=== PATIENT | female | born 1980 | race African-American/Black ===

== ENCOUNTER 2020-09-10 13:05 | Emergency (ER) | payer SELFPAY ==
--- OUTSIDE RECORDS SUMMARY | 2020-09-10 13:07 | XMS REPORT | Clinical Summary ---
:1980 Author Organization [facility] Address [address] [place] [address] Care Team Providers Name Role Phone Asked, Pcp Primary Care Provider Unavailable Allergies Active Allergy Reactions Severity Noted Date Comments Erythromycin 10/15/2017 Ferrous Sulfate 10/15/2017 Medications Medication Sig Dispensed Refills Start Date End Date Status ondansetron (ZOFRAN) 4 Take 1 tablet (4 8 tablet 0 10/15/2017 Active MG tablet mg total) by mouth every 8 (eight) hours as needed for nausea or vomiting for up to 8 doses. 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
--- OUTSIDE RECORDS SUMMARY | 2020-09-10 13:08 | XMS REPORT | Continuity of Care Document ---
:1980 Author Organization [facility] t Address [address] [place] [address] Care Team Providers Name Role Phone Asked, Pcp Primary Care Physician Unavailable Nayeli MSN, A Attending Clinician Doctor Unassigned, Name Attending Clinician Unavailable Problems This patient has no known problems. Allergies, Adverse Reactions, Alerts Allergy Allergy Status Severity Reaction(s) Onset Inactive Treating Comm ents Source Name Type Date Date Clinician Erythrom Propensi Active [place] [facility] ty to 10-15 [facility] adverse 00:00: st reaction 00 s to drug Ferrous Propensi Active [place] Sulfate ty to 08 Methodi adverse 00:00: st reaction 00 s to drug Social History Social Habit Start Date Stop Date Quantity Comments Source History of tobacco Cigarette Smoker [place] use [facility] Sex Assigned At [place] [facility] Cigarettes smoked 2018-04-16 2018-04-16 [place] current (pack per 00:00:00 00:00:00 Methodi day) - Reported Tobacco use and 2018-04-16 2018-04-16 Current user [place] exposure 00:00:00 00:00:00 [facility] Alcohol intake 2018-04-16 2018-04-16 Current [place] 00:00:00 00:00:00 non-drinker of [facility] alcohol (finding) Smoking Status Start Date Stop Date Source Current every day smoker 2018-04-16 00:00:00 Delfino rodriguez [facility] Medications Ordered Filled Start Stop Current Ordering Indication Dosage Frequency Signature Comments Components Source Medication Medication Date Date Medication? Clinician (SIG) Name Name ondansetron 2018-0 Yes 4mg Q8H Take 1 [place] (ZOFRAN) 4 1-08 tablet (4 Meth dick MG tablet 00:00: mg total) st 00 by mouth every 8 (eight) hours as needed for nausea or vomiting for up to 8 doses. Procedures This patient has no known procedures. Plan of Care Planned Activity Planned Date Details Comments Source Future Scheduled 2020-05-08 INFLUENZA VACCINE [place] [facility] Test 00:00:00 [code = INFLUENZA VACCINE] Future Scheduled 2003 Screening for [facility] Test 00:00:00 malignant neoplasm of cervix (procedure) [code = 062813057] Encounters Start End Encounter Admission Attending Care Care Encounter Source Date/Time Date/Time Type Type Clinicians Facility Department ID 2020-05-10 2020-05-10 Office IZABELA Tyler [id number] 10:21:50 12:13:46 Visit Theresa Larkin [facility] [id number] [facility] [id number] MATERNAL [id number] & CHILD [address] [place] [address] 2020-05-10 2020-05-10 Orders Doctor KRISTIN [id number] 00:00:00 00:00:00 Only Unassigned, KELI [id number] [facility] [id number] 2019-11-28 2019-11-28 Emergency E [facility] [id number] [facility]BL 19:15:00 19:15:00 2019-11-23 2019-11-23 Emergency E [facility] [id number] MHBL 09:55:00 09:55:00 2019-05-31 2019-05-31 Emergency E [facility] [id number] MHBL 09:27:00 09:27:00 2019-05-07 2019-05-07 Emergency E [facility] [id number] MHBL 08:04:00 08:04:00 Results This patient has no known results.
[2020-09-10] MEDS ORDERED: ONDANSETRON 4 MG/2 ML VIAL ONE (13:52)
[2020-09-10] MEDS ORDERED: DICYCLOMINE HCL 10 MG CAP ONE (13:52)
[2020-09-10] MEDS ORDERED: NA CHLORIDE 0.9% 1,000 ML ONE (13:53)
[2020-09-10 14:05] LABS: Absolute Lymphocytes (CBC) 2.6 K/uL (0.7-4.9); Basophils % 0.7 % (0-1.3); Hematocrit 40.3 % (36.0-45.0); Lymphocytes % 22.6 % (15.3-44.8); MPV 7.7 fL (7.6-11.3); RBC Red Blood Cell Count 5.06 M/uL (3.86-4.86)
[2020-09-10 14:06] LABS: ALT/SGPT 24 U/L (12-78); AST/SGOT 15 U/L (15-37); Albumin 4.3 g/dL (3.4-5.0); Alkaline Phosphatase 67 U/L (45-117); BUN Blood Urea Nitrogen 10 mg/dL (7-18); Bicarbonate 27 mmol/L (21-32); Bilirubin Direct < 0.1 mg/dL (0-0.2); Bilirubin Total 0.5 mg/dL (0.2-1.0); Glucose Level 121 mg/dL (74-106); Lipase 88 U/L (73-393); Potassium 3.6 mmol/L (3.5-5.1); Protein, Total 8.3 g/dL (6.4-8.2); Sodium Level 138 mmol/L (136-145)
[2020-09-10] MEDS ORDERED: PROMETHAZINE INJ 25 MG/ML AMP ONE (15:31)
--- NOTE | 2020-09-10 15:51 | EDPHYS ---
Physician Documentation [facility] Name: Norma Bowman Age: 39 yrs Sex: Female : 1980 Arrival Date: 09/10/2020 Time: 13:07 Bed 13 Private MD: LAYLA Physician Ap Coello HPI: 09/10 13:57 This 39 yrs old Black Female presents to ER via Ambulatory with complaints of Abdominal kb Pain, Vomiting. 13:57 The patient has not experienced similar symptoms in the past. The patient has not kb recently seen a physician. 14:03 The patient presents to the emergency department with nausea, vomiting. Onset: The kb symptoms/episode began/occurred yesterday. Possible causes: unknown. The symptoms are aggravated by nothing. The symptoms are alleviated by nothing. Associated signs and symptoms: Pertinent positives: fever, nausea, vomiting, Pertinent negatives: abdominal pain. Severity of symptoms: At their worst the symptoms were moderate in the emergency department the symptoms are unchanged. Pt reports nausea and vomiting since yesterday with fever and chills. Today she started having abd cramps and couldn't keep anything down so she came in. Denies abd pain or tenderness.. 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 - Social history:: Smoking status: Patient reports the use of cigarette tobacco products, smokes one pack cigarettes per day. ROS: 13:57 Cardiovascular: Negative for chest pain, palpitations, and edema, Respiratory: Negative kb for shortness of breath, cough, wheezing, and pleuritic chest pain, Back: Negative for injury and pain, MS/Extremity: Negative for injury and deformity, Skin: Negative for injury, rash, and discoloration, Neuro: Negative for headache, weakness, numbness, tingling, and seizure. 13:57 Constitutional: Positive for chills, fever, malaise. 13:57 Abdomen/GI: Positive for nausea and vomiting, abdominal cramps, Negative for abdominal pain, diarrhea, constipation. Exam: 13:56 Constitutional: This is a well developed, well nourished patient who is awake, alert, kb and in no acute distress. Head/Face: Normocephalic, atraumatic. Chest/axilla: Normal chest wall appearance and motion. Nontender with no deformity. No lesions are appreciated. Cardiovascular: Regular rate and rhythm with a normal S1 and S2. No gallops, murmurs, or rubs. Normal PMI, no JVD. No pulse deficits. Respiratory: Lungs have equal breath sounds bilaterally, clear to auscultation and percussion. No rales, rhonchi or wheezes noted. No increased work of breathing, no retractions or nasal flaring. Abdomen/GI: Soft, non-tender, with normal bowel sounds. No distension or tympany. No guarding or rebound. No evidence of tenderness throughout. Skin: Warm, dry with normal turgor. Normal color with no rashes, no lesions, and no evidence of cellulitis. MS/ Extremity: Pulses equal, no cyanosis. Neurovascular intact. Full, normal range of motion. Neuro: Awake and alert, GCS 15, oriented to person, place, time, and situation. Cranial nerves II-XII grossly intact. Motor strength 5/5 in all extremities. Sensory grossly intact. Cerebellar exam normal. Normal gait. Vital Signs: 13:15 BP 130 / 89; Pulse 61; Resp 18; Temp 98.2(TE); Pulse Ox 99% on R/A; Weight 87.09 kg; ss Height 5 ft. 8 in. (172.72 cm); Pain 7/10; 16:14 BP 155 / 91; Pulse 60; Resp 17; Pulse Ox 99% ; ll1 13:15 Body Mass Index 29.19 (87.09 kg, 172.72 cm) ss MDM: 13:21 Patient medically screened. kb 13:56 Data reviewed: vital signs, nurses notes. Data interpreted: Pulse oximetry: on room air kb is 99 %. Interpretation: normal. 15:50 Counseling: I had a detailed discussion with the patient and/or guardian regarding: the kb historical points, exam findings, and any diagnostic results supporting the discharge/admit diagnosis, lab results, the need for outpatient follow up, a family practitioner, to return to the emergency department if symptoms worsen or persist or if there are any questions or concerns that arise at home. 12/04 13:32 Order name: Basic Metabolic Panel; Complete Time: 14:07 kb 09/10 13:32 Order name: CBC with Diff; Complete Time: 14:24 kb 09/10 13:32 Order name: Hepatic Function; Complete Time: 14:07 kb 09/10 13:32 Order name: Lipase; Complete Time: 14:07 kb 09/10 13:36 Order name: Flu; Complete Time: 14:24 kb 09/10 14:46 Order name: COVID-19 kb 09/10 13:32 Order name: IV Saline Lock; Complete Time: 13:34 kb 09/10 13:32 Order name: Labs collected and sent; Complete Time: 13:34 kb 09/10 14:46 Order name: PO challenge; Complete Time: 15:26 kb Administered Medications: 13:43 Drug: NS 0.9% 1000 ml Route: IV; Rate: 1000 ml; Site: left antecubital; ll1 15:37 Follow up: Response: No adverse reaction; Vomiting decreased; RASS: Alert and Calm (0); ll1 IV Status: Completed infusion; IV Intake: 1000ml 13:43 Drug: Zofran (Ondansetron) 4 mg Route: IVP; Site: left antecubital; ll1 14:09 Follow up: Response: No adverse reaction; Nausea is decreased; RASS: Alert and Calm (0) ll1 14:09 Drug: Bentyl 20 mg Route: PO; ll1 15:37 Follow up: Response: No adverse reaction; Pain is decreased; RASS: Alert and Calm (0) ll1 15:26 Drug: Phenergan 12.5 mg Route: IVP; Site: left antecubital; ll1 16:14 Follow up: Response: No adverse reaction; RASS: Alert and Calm (0) ll1 Disposition: 09/11 08:29 Co-signature as Attending Physician, Ap Coello MD I agree with the assessment and rosey plan of care. Disposition: 09/10/20 15:50 Discharged to Home. Impression: Nausea and vomiting. - Condition is Stable. - Discharge Instructions: Nausea and Vomiting, Adult, [id number]. - Prescriptions for Bentyl 20 mg Oral Tablet - take 1 tablet by ORAL route every 6 hours As needed; 20 tablet. Zofran 4 mg Oral Tablet - take 1 tablet by ORAL route every 6 hours As needed; 20 tablet. - Medication Reconciliation Form, Thank You Letter, Antibiotic Education, Prescription Opioid Use, Work release form form. - Follow up: Private Physician; When: 2 - 3 days; Reason: Recheck today's complaints, Continuance of care, Re-evaluation by your physician. Follow up: Emergency Department; When: As needed; Reason: Worsening of condition. Signatures: Dispatcher [employer] EDAL Elmira Jamison, SPEEDER WORKER-C SPEEDER WORKER-Ap Fletcher MD MD cha Smirch, Shelby, RN RN ss Mely Lujan RN RN ll1 Corrections: (The following items were deleted from the chart) 09/10 14:03 13:57 Abdomen/GI: Positive for nausea and vomiting, Negative for abdominal pain, kb diarrhea, constipation, kb 16:17 15:50 09/10/2020 15:50 Discharged to Home. Impression: Nausea and vomiting. Condition ll1 is Stable. Forms are Medication Reconciliation Form, Thank You Letter, Antibiotic Education, Prescription Opioid Use. Follow up: Private Physician; When: 2 - 3 days; Reason: Recheck today's complaints, Continuance of care, Re-evaluation by your physician. Follow up: Emergency Department; When: As needed; Reason: Worsening of condition. kb
--- NOTE | 2020-09-10 15:51 | ER ---
Nurse's Notes [facility] Name: Norma Bowman Age: 39 yrs Sex: Female : 1980 Arrival Date: 09/10/2020 Time: 13:07 Bed 13 Private MD: Diagnosis: Nausea and vomiting Presentation: 09/10 13:15 Chief complaint: Patient states: abd pain, N/V that began after eating yesterday. Pt ss also c/o fatigue. Coronavirus screen: Client denies travel out of the [place] in the last 14 days. Ebola Screen: Patient denies exposure to infectious person. Patient denies travel to an Ebola-affected area in the 21 days before illness onset. Initial Sepsis Screen: Does the patient meet any 2 criteria? No. Patient's initial sepsis screen is negative. Does the patient have a suspected source of infection? No. Patient's initial sepsis screen is negative. Risk Assessment: Do you want to hurt yourself or someone else? Patient reports no desire to harm self or others. Onset of symptoms was September 09, 2020. 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 - Social history:: Smoking status: Patient reports the use of cigarette tobacco products, smokes one pack cigarettes per day. Screenin:44 Abuse screen: Denies threats or abuse. Nutritional screening: No deficits noted. ll1 Tuberculosis screening: No symptoms or risk factors identified. Fall Risk None identified. IV access (20 points). Gait- Weak (10 pts.). Total Cassidy Fall Scale indicates Low Risk Score (25-44 pts). Fall prevention measures have been instituted. Side Rails Up X 2 Frequent Obs/Assesments occuring As available Patient and Family Educated on Fall Prevention Program and strategies. Assessment: 13:43 General: Appears uncomfortable, Behavior is calm, cooperative, appropriate for age. ll1 Pain: Complains of pain in abd cramping Pain currently is 3 out of 10 on a pain scale. Quality of pain is described as aching, crampy, Is intermittent. Neuro: No deficits noted. Cardiovascular: No deficits noted. Respiratory: No deficits noted. GI: Abdomen is flat, Bowel sounds present X 4 quads. Abd is soft X 4 quads Abdomen is tender to palpation X 4 quads. Reports cramping, nausea, vomiting. Musculoskeletal: Circulation, motion, and sensation intact. Capillary refill < 3 seconds, Reports body aches and fatigue. 14:40 Reassessment: Patient and/or family updated on plan of care and expected duration. Pain ll1 level reassessed. Patient states symptoms have not improved. 15:40 Reassessment: Patient and/or family updated on plan of care and expected duration. Pain ll1 level reassessed. Patient is alert, oriented x 3, equal unlabored respirations, skin warm/dry/pink. nausea is better, but is emotionally crying. States she is just tired and just wants to be able to sleep. . Vital Signs: 13:15 BP 130 / 89; Pulse 61; Resp 18; Temp 98.2(TE); Pulse Ox 99% on R/A; Weight 87.09 kg; ss Height 5 ft. 8 in. (172.72 cm); Pain 7/10; 16:14 BP 155 / 91; Pulse 60; Resp 17; Pulse Ox 99% ; ll1 13:15 Body Mass Index 29.19 (87.09 kg, 172.72 cm) ss ED Course: 13:07 Patient arrived in ED. ds1 13:16 Triage completed. ss 13:16 Arm band placed on right wrist. ss 13:21 Elmira Jamison FNP-C is PHCP. kb 13:21 Ap Coello MD is Attending Physician. kb 13:22 Mely Lujan RN is Primary Nurse. ll1 13:39 Inserted saline lock: 20 gauge in left antecubital area, using aseptic technique. Blood dh4 collected. 13:45 Patient has correct armband on for positive identification. Bed in low position. Call ll1 light in reach. Side rails up X 1. NIBP on. Sitter at bedside. 16:16 No provider procedures requiring assistance completed. IV discontinued, intact, ll1 bleeding controlled, No redness/swelling at site. Pressure dressing applied. Administered Medications: 13:43 Drug: NS 0.9% 1000 ml Route: IV; Rate: 1000 ml; Site: left antecubital; ll1 15:37 Follow up: Response: No adverse reaction; Vomiting decreased; RASS: Alert and Calm (0); ll1 IV Status: Completed infusion; IV Intake: 1000ml 13:43 Drug: Zofran (Ondansetron) 4 mg Route: IVP; Site: left antecubital; ll1 14:09 Follow up: Response: No adverse reaction; Nausea is decreased; RASS: Alert and Calm (0) ll1 14:09 Drug: Bentyl 20 mg Route: PO; ll1 15:37 Follow up: Response: No adverse reaction; Pain is decreased; RASS: Alert and Calm (0) 1 15:26 Drug: Phenergan 12.5 mg Route: IVP; Site: left antecubital; ll1 16:14 Follow up: Response: No adverse reaction; RASS: Alert and Calm (0) 1 Intake: 15:37 IV: 1000ml; Total: 1000ml. 1 Outcome: 15:50 Discharge ordered by . perez 16:17 Discharged to home ambulatory. ll1 16:17 Condition: stable 16:17 Discharge instructions given to patient, Instructed on discharge instructions, follow up and referral plans. medication usage, Demonstrated understanding of instructions, follow-up care, medications, Prescriptions given X 2. 16:17 Patient left the ED. ll1 Addendum: 09/13/2020 11:42 Addendum: COVID-19 Result: Negative result given to RN to notify pt. Notified pt of i w negative COVID 19 swab results. Pt advised that even with a negative test result they should remain in isolation until symptom free for 3 days without medication. Pt also advised to return to the ED for worsening symptoms. Signatures: Elmira Jamison, AMOR-C WIRE CHARGER-Miguelina Wallace ds1 Teresita Alfredo RN RN Lauren Young RN RN Adarsh Schroeder 4 Mely Lujan RN RN 1
[2020-09-15 18:17] VITALS: BP 155/91; TEMP 98.2; O2SAT 99
== END 2020-09-10 16:17 | disposition home or self-care (01) ==
LOC: ER 13:05
DX: R11.2 Nausea with vomiting, unspecified (principal); Z20.828 Contact with and (suspected) exposure to other viral communicable diseases; F17.210 Nicotine dependence, cigarettes, uncomplicated; Z88.3 Allergy status to other anti-infective agents; Z88.8 Allergy status to other drugs, medicaments and biological substances
CPT/HCPCS: 36415; 80048; 80076; 83690; 85025; 87804; 96361; 96374; 96375; 99284; J2405; J2550; J7030; U0002

== ENCOUNTER 2021-01-11 21:37 | Emergency (ER) | payer SELFPAY ==
--- OUTSIDE RECORDS SUMMARY | 2021-01-11 21:40 | XMS REPORT | Continuity of Care Document ---
:1980 Author Organization [facility] t Address [address] [place] [address] Care Team Providers Name Role Phone Asked, Pcp Primary Care Physician Unavailable Nayeli CRUZ, A Attending Clinician Doctor Unassigned, Name Attending Clinician Unavailable Problems This patient has no known problems. Allergies, Adverse Reactions, Alerts Allergy Allergy Status Severity Reaction(s) Onset Inactive Treating Comm ents Source Name Type Date Date Clinician Erythrom Propensi Active [place] y[place] ty to 10-15 [facility] adverse 00:00: st reaction 00 s to drug Ferrous Propensi Active [place] Sulfate ty to 10-15 Methodi adverse 00:00: st reaction 00 s to drug Social History Social Habit Start Date Stop Date Quantity Comments Source History of tobacco Cigarette Smoker [place] use [facility] Cigarettes smoked 2018-04-16 2018-04-16 [place] current (pack per 00:00:00 00:00:[address] day) - Reported Tobacco use and 2018-04-16 2018-04-16 Current user [place] exposure 00:00:00 00:00:00 [facility] Alcohol intake 2018-04-16 2018-04-16 Current [place] 00:00:00 00:00:00 non-drinker of [facility] alcohol (finding) Sex Ass[birth year] At [birth year] [place] 00:00:00 00:00:00 [facility] Smoking Status Start Date Stop Date Source Current every day smoker 2018-04-16 00:00:00 Delfino Joseph Medications Ordered Filled Start Stop Current Ordering Indication Dosage Frequency Signature Comments Components Source Medication Medication Date Date Medication? Clinician (SIG) Name Name ondansetron Yes 4mg Q8H Take 1 [place] (ZOFRAN) 4 1-08 tablet (4 Meth dick MG tablet 00:00: mg total) st 00 by mouth every 8 (eight) hours as needed for nausea or vomiting for up to 8 doses. Procedures This patient has no known procedures. Plan of Care Planned Activity Planned Date Details Comments Source Future Scheduled 2020-05-08 INFLUENZA VACCINE [place] [facility] Test 00:00:00 [code = INFLUENZA VACCINE] Future Scheduled 2003 Screening for [facility]odist Test 00:00:00 malignant neoplasm of cervix (procedure) [code = 208412953] Future Scheduled 2000 Hepatitis C [place] Met [facility]ist Test 00:00:00 screening (procedure) [code = 291300866] Future Scheduled 1998 COVID-19 VACCINE (1) Delfino rodriguez [facility] Test 00:00:00 [code = COVID-19 VACCINE (1)] Encounters Start End Encounter Admission Attending Care Care Encounter Source Date/Time Date/Time Type Type Clinicians Facility Department ID 2020-05-10 2020-05-10 Office IZABELA Tyler [id number] 10:21:50 12:13:46 Visit Theresa Larkin [facility] [id number] [facility] [id number] MATERNAL [id number] & CHILD [address] [place] [address] 2020-05-10 2020-05-10 Orders Doctor KRISTIN [id number] 00:00:00 00:00:00 Only Unassigned, KELI [id number] [place] [facility] [id number] 2019-11-28 2019-11-28 Emergency E [facility] [id number] MHBL 19:15:00 19:15:00 2019-11-23 2019-11-23 Emergency E [facility]BL [id number] MHBL 09:55:00 09:55:00 2019-05-31 2019-05-31 Emergency E [facility]BL [id number] MHBL 09:27:00 09:27:00 2019-05-07 2019-05-07 Emergency E [facility] MHBL [id number] MHBL 08:04:00 08:04:00 Results This patient has no known results.
--- NOTE | 2021-01-12 00:08 | EDPHYS ---
Physician Documentation [facility] Name: Norma Bowman Age: 40 yrs Sex: Female : 1980 Arrival Date: 01/11/2021 Time: 21:40 Bed 2 Private MD: LAYLA Physician Ap Coello HPI: 01/12 00:07 This 40 yrs old Black Female presents to ER via Ambulatory with complaints of Ear Pain, pm1 Sore Throat. 00:07 The patient presents with pain, that is acute. The complaints affect the right ear. pm1 Onset: The symptoms/episode began/occurred 2 day(s) ago. Modifying factors: The symptoms are alleviated by nothing, the symptoms are aggravated by nothing, touching. Associated signs and symptoms: Pertinent positives: sore throat, Pertinent negatives: fever, rhinorrhea, vomiting. Severity of symptoms: in the emergency department the symptoms are worse. The patient has not experienced similar symptoms in the past. The patient has not recently seen a physician. 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 - Social history:: Smoking status: Patient reports the use of cigarette tobacco products, smokes one-half pack cigarettes per day. ROS: 01/12 00:07 Constitutional: Negative for fever, chills, and weight loss. pm1 Cardiovascular: Negative for chest pain, palpitations, and edema, Respiratory: Negative for shortness of breath, cough, wheezing, and pleuritic chest pain, Abdomen/GI: Negative for abdominal pain, nausea, vomiting, diarrhea, and constipation, MS/Extremity: Negative for injury and deformity, Skin: Negative for injury, rash, and discoloration, Neuro: Negative for headache, weakness, numbness, tingling, and seizure. ENT: Positive for ear pain, sore throat, Negative for difficulty swallowing, difficulty handling secretions, hoarseness. Exam: 00:07 Constitutional: This is a well developed, well nourished patient who is awake, alert, pm1 and in no acute distress. Head/Face: Normocephalic, atraumatic. 00:07 Skin: Warm, dry with normal turgor. Normal color with no rashes, no lesions, and no evidence of cellulitis. MS/ Extremity: Pulses equal, no cyanosis. Neurovascular intact. Full, normal range of motion. 00:07 ENT: External ear(s): are unremarkable, Ear canal(s): are normal, TM's: bulging, on the right, erythema, that is mild, on the right, Examination of the other ear shows no obvious abnormality, Posterior pharynx: Tonsils: enlarged on the right, with erythema, no exudate, no ulcerations, peritonsillar mass, is not appreciated, pooling of secretions, is not appreciated. 00:07 Neck: Lymph nodes: lymphadenopathy is appreciated, anterior cervical nodes. 00:07 Cardiovascular: Exam negative for acute changes, Rate: normal, Rhythm: regular, Pulses: no pulse deficits are appreciated. 00:07 Respiratory: Exam negative for acute changes, respiratory distress, shortness of breath. 00:07 Neuro: Orientation: is normal, Mentation: is normal, Motor: is normal, moves all fours. Vital Signs: 01/11 21:51 BP 142 / 93; Pulse 79; Resp 17; Temp 98.4; Pulse Ox 98% ; Weight 95.25 kg; Height 5 ft. ll1 8 in. (172.72 cm); Pain 9/10; 01/12 00:20 BP 135 / 80; Pulse 80; Resp 18; Pulse Ox 100% on R/A; mg2 01/11 21:51 Body Mass Index 31.93 (95.25 kg, 172.72 cm) ll1 MDM: 00:02 Patient medically screened. pm1 00:07 Data reviewed: vital signs. Data interpreted: Pulse oximetry: on room air is 98 %. pm1 Interpretation: normal. Counseling: I had a detailed discussion with the patient and/or guardian regarding: the historical points, exam findings, and any diagnostic results supporting the discharge/admit diagnosis, the need for outpatient follow up, to return to the emergency department if symptoms worsen or persist or if there are any questions or concerns that arise at home. 01/12 00:08 Order name: Strep pm1 Administered Medications: 00:09 Drug: [place] (HYDROcodone-acetaminophen) 5 mg-325 mg 1 tabs Route: PO; mg2 00:22 Follow up: Response: No adverse reaction mg2 00:21 Drug: Augmentin (Amoxicillin-Clavulanate) 875 mg Route: PO; mg2 00:22 Follow up: Response: No adverse reaction; Medication administered at discharge. mg2 Disposition: 06:40 Co-signature as Attending Physician, Ap Coello MD I agree with the assessment and rosey plan of care. Disposition: 01/12/21 00:08 Discharged to Home. Impression: Otitis media, unspecified, right ear, Acute pharyngitis. - Condition is Stable. - Discharge Instructions: Otitis Media, Adult, Pharyngitis. - Prescriptions for Augmentin 875- 125 mg Oral Tablet - take 1 tablet by ORAL route every 12 hours for 10 days; 20 tablet. Tramadol 50 mg Oral Tablet - take 1 tablet by ORAL route every 8 hours as needed; 12 tablet. - Medication Reconciliation Form, Thank You Letter, Antibiotic Education, Prescription Opioid Use, Work release form form. - Follow up: Emergency Department; When: As needed; Reason: Worsening of condition. Follow up: Private Physician; When: 2 - 3 days; Reason: Recheck today's complaints, Continuance of care, Re-evaluation by your physician. - Problem is new. - Symptoms have improved. Signatures: Dispatcher [employer] EDMS Ap Coello MD MD cha Marinas, Patrick, CHAY PAY STATION ATTENDANT pm1 Florian Sands RN RN mg2 Mely Lujan RN RN ll1 Corrections: (The following items were deleted from the chart) 00:26 00:08 01/12/2021 00:08 Discharged to Home. Impression: Otitis media, unspecified, right mg2 earAcute pharyngitis. Condition is Stable. Forms are Medication Reconciliation Form, Thank You Letter, Antibiotic Education, Prescription Opioid Use. Follow up: Emergency Department; When: As needed; Reason: Worsening of condition. Follow up: Private Physician; When: 2 - 3 days; Reason: Recheck today's complaints, Continuance of care, Re-evaluation by your physician. Problem is new. Symptoms have improved. pm1
--- NOTE | 2021-01-12 00:08 | ER ---
Nurse's Notes [facility] Name: Norma Bowman Age: 40 yrs Sex: Female : 1980 Arrival Date: 01/11/2021 Time: 21:40 Bed 2 Private MD: Diagnosis: Acute pharyngitis;Otitis media, unspecified, right ear Presentation: 01/11 21:51 Chief complaint: Patient states: Sore throat, R ear pain for 2 days. Coronavirus ll1 screen: Client denies travel out of the [place] in the last 14 days. chills, congestion, runny nose, sore throat, Client presents with at least one sign or symptom that may indicate coronavirus-19. Standard/surgical mask placed on the client. Ebola Screen: Patient denies travel to an Ebola-affected area in the 21 days before illness onset. Initial Sepsis Screen: Does the patient meet any 2 criteria? No. Patient's initial sepsis screen is negative. Does the patient have a suspected source of infection? Yes: Other: ear/throat. Risk Assessment: Do you want to hurt yourself or someone else? Patient reports no desire to harm self or others. Onset of symptoms was January 10, 2021. 21:51 Method Of Arrival: Ambulatory ll1 21:51 Acuity: LAURENT 3 ll1 Triage Assessment: 01/12 00:10 General: Appears in no apparent distress. comfortable, Behavior is calm, cooperative. 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 - Social history:: Smoking status: Patient reports the use of cigarette tobacco products, smokes one-half pack cigarettes per day. Screenin/07 00:10 Abuse screen: Denies threats or abuse. Denies injuries from another. Nutritional mg2 screening: No deficits noted. Tuberculosis screening: No symptoms or risk factors identified. 00:10 Fall Risk None identified. mg2 Assessment: 00:10 General: Appears in no apparent distress. comfortable, Behavior is calm, cooperative. mg2 Pain: Complains of pain in right ear. Neuro: Level of Consciousness is awake, alert, obeys commands, Oriented to person, place, time, situation. Cardiovascular: Capillary refill < 3 seconds Patient's skin is warm and dry. Respiratory: Airway is patent Respiratory effort is even, unlabored, Respiratory pattern is regular, symmetrical. GI: No signs and/or symptoms were reported involving the gastrointestinal system. : No signs and/or symptoms were reported regarding the genitourinary system. EENT: Reports right ear . Derm: Skin is intact, is healthy with good turgor, Skin is pink, warm \T\ dry. normal. Musculoskeletal: Circulation, motion, and sensation intact. Capillary refill < 3 seconds. Vital Signs: 01/11 21:51 BP 142 / 93; Pulse 79; Resp 17; Temp 98.4; Pulse Ox 98% ; Weight 95.25 kg; Height 5 ft. ll1 8 in. (172.72 cm); Pain 9/10; 01/12 00:20 BP 135 / 80; Pulse 80; Resp 18; Pulse Ox 100% on R/A; mg2 01/11 21:51 Body Mass Index 31.93 (95.25 kg, 172.72 cm) ll1 ED Course: 01/11 21:40 Patient arrived in ED. cf2 21:53 Triage completed. ll1 21:54 Arm band placed on Patient notified of wait time. ll1 23:51 Patient's name was called from ER lobby. No response. bb 23:57 Evin Silveira NP is PHCP. pm1 23:58 Ap Coello MD is Attending Physician. pm1 23:58 Florian Sands RN is Primary Nurse. mg2 01/12 00:10 Patient has correct armband on for positive identification. mg2 00:22 No provider procedures requiring assistance completed. Patient did not have IV access mg2 during this emergency room visit. Administered Medications: 00:09 Drug: [place] (HYDROcodone-acetaminophen) 5 mg-325 mg 1 tabs Route: PO; mg2 00:22 Follow up: Response: No adverse reaction mg2 00:21 Drug: Augmentin (Amoxicillin-Clavulanate) 875 mg Route: PO; mg2 00:22 Follow up: Response: No adverse reaction; Medication administered at discharge. mg2 Outcome: 00:08 Discharge ordered by . pm1 00:26 Discharged to home ambulatory. mg2 00:26 Condition: stable 00:26 Discharge instructions given to patient, Instructed on discharge instructions, the need for admit, medication usage, Demonstrated understanding of instructions, follow-up care, medications, Prescriptions given X 2. 00:26 Patient left the ED. mg2 Signatures: Ann Rosario, RN RN bb Evin Silveira, PLATE SHOP HELPER PLATE SHOP HELPER pm1 Florian Sands RN RN mg2 Mckinley Prater cf2 Mely Lujan RN RN ll1
[2021-01-12] MEDS ORDERED: HYDROCODONE/APAP 5/325 MG TAB ONE (00:25)
[2021-01-12] MEDS ORDERED: AMOX/K CLAV 875 MG TAB ONE (00:37)
[2021-01-12 01:48] VITALS: BP 142/93; TEMP 98.4; O2SAT 98
== END 2021-01-12 00:26 | disposition home or self-care (01) ==
LOC: ER 21:37
DX: H66.91 Otitis media, unspecified, right ear (principal); J02.9 Acute pharyngitis, unspecified; F17.210 Nicotine dependence, cigarettes, uncomplicated; Z88.3 Allergy status to other anti-infective agents; Z88.8 Allergy status to other drugs, medicaments and biological substances
CPT/HCPCS: 87070; 87081; 99283

== ENCOUNTER 2021-09-14 22:37 | Emergency (ER) | payer SELFPAY ==
--- OUTSIDE RECORDS SUMMARY | 2021-09-14 22:40 | XMS REPORT | Continuity of Care Document ---
:1980 Author Organization [facility] t Address [address] [place] [address] Care Team Providers Name Role Phone Ade BERGMAN Attending Clinician Unavailable IMAN SLATER Attending Clinician Unavailable THAIS, Chaya Attending Clinician Unavailable Thais MSN, A Attending Clinician Doctor Unassigned, Name Attending Clinician Unavailable Payers Payer Name Policy Type Policy Number Effective Date Expiration Date S melinda [id number] 2018 00:00:00 Problems This patient has no known problems. Allergies, Adverse Reactions, Alerts Allergy Allergy Status Severity Reaction(s) Onset Inactive Treating Comm ents Source Name Type Date Date Clinician ERYTHROM DRUG Active Hives Univers YCIN 5-05 ity of 00:00: [address] IRON DRUG Active Anaphylaxis Unive rs INGREDI 05 ity of 00:00: [place] 00 [facility] AZITHROM DRUG Active Unknown-Cmnt Un tello YCIN INGREDI 5-05 ity of 00:00: [address] Medications This patient has no known medications. Procedures This patient has no known procedures. Encounters Start End Encounter Admission Attending Care Care Encounter Source Date/Time Date/Time Type Type Clinicians Facility Department ID 2021-07-24 Outpatient [facility] [id number] [place] 12:46:39 [id number] [facility] 2021-07-24 Outpatient [facility] [id number] [facility] 12:32:48 [id number] [facility] 2021-06-01 2021-06-01 Outpatient R AKINSIPE, [facility] [id number] Univers 10:30:00 10:30:00 ARCHIE [id number] ity o [facility] 2021-06-01 2021-06-01 Outpatient R AKINSIPE, [facility] [id number] Univers 10:30:00 10:30:00 ARCHIE ity o f [facility] 2021-05-11 2021-05-11 Outpatient EBONIE SLATER [facility] [id number] Univers 10:00:00 10:00:00 [id number] [facility] 2021-05-11 2021-05-11 Outpatient R NOHEMY [facility] [id number] Univers 10:00:00 10:00:00 [facility] 2021-05-05 2021-05-05 Outpatient R AKINSIPE, [facility] [id number] Univers 15:00:00 15:00:00 ARCHIE [id number] ity o [facility] 2021-05-05 2021-05-05 Outpatient R AKINSIPE, [facility] [id number] Univers 15:00:00 15:00:00 ARCHIE itjohn o [facility] 2021-04-29 2021-04-29 Outpatient NOHEMY EBONIE [facility] [id number] Univers 14:45:00 14:45:00 [id number] [facility] 2021-04-29 2021-04-29 Outpatient R NOHEMY [facility] [id number] Univers 14:45:00 14:45:00 [facility] 2020-06-21 2020-06-21 Outpatient R THAIS, [facility] [id number] Univers 09:00:00 09:00:00 [facility] 2020-06-21 2020-06-21 Outpatient R THAIS, [facility] [id number] Univers 09:00:00 09:00:00 [facility]ESA [id number] [facility] 2020-05-10 2020-05-10 [facility] [id number] 10:21:50 12:13:46 Visit Theresa Larkin ARCHITECT [id number] [facility] [id number] MATERNAL [id number] & CHILD [address] [place] [address] 2020-05-10 2020-05-10 Outpatient CARRIEAASHISH [facility] [id number] Univers 10:30:00 10:30:00 THERESA [id number] krystina mendoza [facility] 2020-05-10 2020-05-10 [facility] [id number] Univers 10:30:00 10:30:00 THERESA mendoza [facility] 2020-05-10 2020-05-10 Orders Doctor KRISTIN [id number] 00:00:00 00:00:00 Only Unassigned, KELI [id number] 2020-04-23 2020-04-23 [facility]patient [facility] [id number] Univers 09:15:00 09:15:00 THERESA mendoza [facility] 2019-11-28 2019-11-28 Emergency E MHBL MHBL [id number] MHBL 19:15:00 19:15:00 2019-11-23 2019-11-23 Emergency E MHBL MHBL [id number] MHBL 09:55:00 09:55:00 2019-05-31 2019-05-31 Emergency E MHBL MHBL [id number] MHBL 09:27:00 09:27:00 2019-05-07 2019-05-07 Emergency E MHBL MHBL [id number] MHBL 08:04:00 08:04:00 Results This patient has no known results.
[2021-09-14] MEDS ORDERED: ONDANSETRON 4 MG/2 ML VIAL ONE (23:08)
[2021-09-14] MEDS ORDERED: FENTANYL CITR 100 MCG/2 ML ONE (23:08)
[2021-09-14 23:15] LABS: Urine Blood Negative (Negative); Urine Glucose Negative (Negative); Urine Protein Negative (Negative); Urine Specific Gravity 1.025 (1.005-1.030); Urine pH 5.5 (5.0-7.0)
[2021-09-14 23:30] LABS: Absolute Lymphocytes (CBC) 4.7 K/uL (0.7-4.9); Basophils % 0.6 % (0-1.3); Hematocrit 38.6 % (36.0-45.0); Lymphocytes % 35.1 % (15.3-44.8); MPV 7.3 fL (7.6-11.3); RBC Red Blood Cell Count 4.86 M/uL (3.86-4.86)
[2021-09-14 23:45] LABS: BUN Blood Urea Nitrogen 8 mg/dL (7-18); Bicarbonate 22 mmol/L (21-32); Glucose Level 136 mg/dL (74-106); Potassium 3.5 mmol/L (3.5-5.1); Sodium Level 139 mmol/L (136-145)
[2021-09-15 00:18] LABS: Urine Specific Gravity/Preg 1.025 (1.005-1.030)
--- NOTE | 2021-09-15 01:17 | ER ---
Nurse's Notes [facility] Name: Norma Bowman Age: 40 yrs Sex: Female : 1980 Arrival Date: 09/14/2021 Time: 22:39 Bed 12 Private MD: Diagnosis: Fall on same level from slipping, tripping and stumbling without subsequent striking against object;Cervicalgia;Dorsalgia, unspecified Presentation: 09/14 22:46 Chief complaint: Patient states: back and body pain secondary to fall. Care prior to da3 arrival: None. Mechanism of Injury: Fall from standing position. 22:46 Acuity: LAURENT 3 da3 22:46 Method Of Arrival: Ambulatory da3 23:15 Coronavirus screen: Client denies travel out of the [place] in the last 14 days. Ebola ss Screen: Patient denies exposure to infectious person. Patient denies travel to an Ebola-affected area in the 21 days before illness onset. Initial Sepsis Screen: Does the patient meet any 2 criteria? No. Patient's initial sepsis screen is negative. Does the patient have a suspected source of infection? No. Patient's initial sepsis screen is negative. Risk Assessment: Do you want to hurt yourself or someone else? Patient reports no desire to harm self or others. Onset of symptoms was September 14, 2021. 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 - Social history:: Smoking status: Patient denies any tobacco usage or history of. Screenin:15 Abuse screen: Denies threats or abuse. Denies injuries from another. Nutritional ss screening: No deficits noted. Tuberculosis screening: Never had TB. Fall Risk None identified. Primary Survey: 22:49 Breathing/Chest: Respiratory pattern:. da3 22:49 NO uncontrolled hemorrhage observed. A: The patient is alert. Airway: patent, No ss supplemental oxygen in use on arrival. Oral cavity: clear, Trachea midline. Circulation: Pulses: palpable right radial artery, right posterior tibial artery, left radial artery and left posterior tibial artery. Disability Alert. Exposure/Environment: There is no evidence of uncontrolled external bleeding. Secondary Survey: 22:49 HEENT: No deficits noted. : No deficits noted. Musculoskeletal: Circulation, motion, ss and sensation intact. Range of motion: intact in all extremities, Swelling absent. Assessment: 22:46 General: Appears distressed, uncomfortable, Behavior is cooperative, crying. Pain: da3 Complains of pain in back and buttocks Pain currently is 10 out of 10 on a pain scale. 23:15 General: Behavior is cooperative, anxious, crying. Neuro: Level of Consciousness is ss awake, alert, obeys commands, Oriented to person, place, time, situation. Cardiovascular: Capillary refill < 3 seconds is brisk in bilateral fingers. Respiratory: Reports pain with cough pain with movement pain with respiration Airway is patent Trachea midline Respiratory effort is even, unlabored, Respiratory pattern is regular, symmetrical. Respiratory: Breath sounds are clear bilaterally. Denies shortness of breath. GI: Abdomen is non-distended. GI: Abdomen is tender to palpation in right upper quadrant and left upper quadrant Patient currently denies nausea, vomiting. : No signs and/or symptoms were reported regarding the genitourinary system. EENT: Nares are clear Oral mucosa is moist. Throat is clear. Derm: Skin is intact, is healthy with good turgor, Skin is dry, Skin is pink, warm \T\ dry. normal. Musculoskeletal: Circulation, motion, and sensation intact. Range of motion: intact in all extremities, Swelling absent. 09/15 00:00 Reassessment: Pt to CT now VIA stretcher. ss 00:36 Reassessment: Patient appears in no apparent distress at this time. Patient and/or ss family updated on plan of care and expected duration. Pain level reassessed. Pt is laying on stretcher, texting on cell phone. VS WNL. Respiratory: Respiratory effort is even, unlabored, Respiratory pattern is regular, symmetrical. Derm: Skin is pink, warm \T\ dry. normal. 01:34 Reassessment: Patient is alert, oriented x 3, equal unlabored respirations, skin bb warm/dry/pink. pt states pain is better but she is still very sore. Pt verbalized understanding of and agrees to plan of care discharge instructions given pt ambulated slowly to exit. Vital Signs: 09/14 22:49 BP 167 / 100; Pulse 93; Resp 24; Temp 99.0; Pulse Ox 100% on R/A; Weight 88.45 kg; da3 Height 5 ft. 8 in. (172.72 cm); 23:49 BP 117 / 72; Pulse 61; Resp 16; Pulse Ox 100% ; Pain 6/10; ss 09/15 01:36 BP 126 / 83; Pulse 66; Resp 16 S; Pulse Ox 100% on R/A; bb 09/14 22:49 Body Mass Index 29.65 (88.45 kg, 172.72 cm) da3 Trinity Coma Score: 09/14 22:49 Eye Response: spontaneous(4). Verbal Response: oriented(5). Motor Response: obeys da3 commands(6). Total: 15. 23:49 Eye Response: spontaneous(4). Verbal Response: oriented(5). Motor Response: obeys ss commands(6). Total: 15. Trauma Score (Adult): 22:49 Eye Response: spontaneous(1); Verbal Response: oriented(1); Motor Response: obeys da3 commands(2); Systolic BP: > 89 mm Hg(4); Respiratory Rate: 10 to 29 per min(4); Trinity Score: 15; Trauma Score: 12 23:49 Eye Response: spontaneous(1); Verbal Response: oriented(1); Motor Response: obeys ss commands(2); Systolic BP: > 89 mm Hg(4); Respiratory Rate: 10 to 29 per min(4); Trinity Score: 15; Trauma Score: 12 ED Course: 22:39 Patient arrived in ED. wm 22:48 Triage completed. da3 22:48 Ap Mae PA is PHCP. cp 22:48 Shiv Baltazar MD is Attending Physician. cp 23:03 Lauren Young RN is Primary Nurse. ss 23:15 Patient has correct armband on for positive identification. Bed in low position. Call ss light in reach. 23:20 No provider procedures requiring assistance completed. Inserted saline lock: 22 gauge ss in right antecubital area, using aseptic technique. Blood collected. 23:22 Patient maintains SpO2 saturation greater than 95% on room air. Thermoregulation: warm ss blanket given to patient. 23:31 Arm band placed on left wrist. ss 09/15 00:34 CT Traumagram (Head C Spine CAP W Con) In Process Unspecified. EDMS 01:37 IV discontinued, intact, bleeding controlled, No redness/swelling at site. Pressure bb dressing applied. Administered Medications: 09/14 11:18 Drug: Zofran (Ondansetron) 4 mg Route: IVP; Site: right antecubital; ss 23:22 Drug: fentaNYL (PF) 25 mcg Route: IVP; Site: right antecubital; ss Intake: 09/15 00:36 PO: 0ml; Total: 0ml. ss Outcome: 01:17 Discharge ordered by MD. cp 01:37 Discharged to home ambulatory. bb 01:37 Condition: stable 01:37 Discharge instructions given to patient, Instructed on discharge instructions, follow up and referral plans. medication usage. 01:37 Prescriptions given X 4. 01:38 Patient left the ED. bb Signatures: Dispatcher [employer] EDMS Ann Rosario, RN RN bb Lauren Young RN RN ss Ap Mae PA PA Vi Wilcox Arnie Anton, RN RN da3
--- NOTE | 2021-09-15 01:17 | EDPHYS ---
Physician Documentation [facility] Name: Norma Bowman Age: 40 yrs Sex: Female : 1980 Arrival Date: 09/14/2021 Time: 22:39 Bed 12 Private MD: ED Physician Shiv Baltazar HPI: 09/14 22:48 This 40 yrs old Black Female presents to ER via Ambulatory with complaints of Fall cp Injury. 22:48 Details of fall: The patient fell from an upright position, while walking, and struck a cp tile surface. Onset: The symptoms/episode began/occurred just prior to arrival. 22:50 Patient reports slip and fall backward landing on back while at local restaurant today. cp Patient reports hitting back of head but no LOC. 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 - Social history:: Smoking status: Patient denies any tobacco usage or history of. ROS: 22:55 Constitutional: Negative for body aches, chills, fever, poor PO intake. cp 22:55 Eyes: Negative for injury, pain, redness, and discharge. cp 22:55 Neck: Positive for bony tenderness, Negative for stiffness. 22:55 Cardiovascular: Negative for chest pain, palpitations. 22:55 Respiratory: Negative for cough, shortness of breath, wheezing. 22:55 Abdomen/GI: Negative for abdominal pain, nausea, vomiting, and diarrhea. 22:55 Back: Positive for pain at rest, pain with movement, of the thoracic area and lumbar area. 22:55 Neuro: Negative for altered mental status, loss of consciousness, syncope, weakness. 22:55 All other systems are negative. Exam: 23:00 Constitutional: The patient appears in no acute distress, alert, awake, non-toxic, well cp developed, well nourished, uncomfortable. 23:00 Head/Face: Normocephalic, atraumatic. cp 23:00 Eyes: Periorbital structures: appear normal, Pupils: equal, round, and reactive to light and accomodation, Extraocular movements: intact throughout, Conjunctiva: normal, no exudate, no injection, Lids and lashes: appear normal, bilaterally. 23:00 ENT: External ear(s): are unremarkable, Nose: is normal, Posterior pharynx: Airway: no evidence of obstruction, patent. 23:00 Neck: C-spine: C-collar placed in ED, vertebral tenderness, that is mild, appreciated at C7, ROM/movement: limited range of motion, is not appreciated, Meningeal signs: are not present, nuchal rigidity, is not appreciated. 23:00 Chest/axilla: Inspection: normal. 23:00 Cardiovascular: Rate: normal, Rhythm: regular. 23:00 Respiratory: the patient does not display signs of respiratory distress, Respirations: normal, no use of accessory muscles, no retractions, labored breathing, is not present, Breath sounds: are clear throughout, no decreased breath sounds, no stridor, no wheezing. 23:00 Abdomen/GI: Inspection: abdomen appears normal, Palpation: abdomen is soft and non-tender, in all quadrants. 23:00 Back: pain, that is severe, of the lumbar area, ROM is painful, with all movement. 23:00 Musculoskeletal/extremity: Exam is negative for decreased range of motion, deformity, injury. 23:00 Neuro: Orientation: to person, place \T\ time. Mentation: is normal, Motor: moves all fours, strength is normal, Sensation: is normal, Gait: is steady. Vital Signs: 22:49 BP 167 / 100; Pulse 93; Resp 24; Temp 99.0; Pulse Ox 100% on R/A; Weight 88.45 kg; da3 Height 5 ft. 8 in. (172.72 cm); 23:49 BP 117 / 72; Pulse 61; Resp 16; Pulse Ox 100% ; Pain 6/10; ss 09/15 01:36 BP 126 / 83; Pulse 66; Resp 16 S; Pulse Ox 100% on R/A; bb 09/14 22:49 Body Mass Index 29.65 (88.45 kg, 172.72 cm) da3 Trinity Coma Score: 09/14 22:49 Eye Response: spontaneous(4). Verbal Response: oriented(5). Motor Response: obeys da3 commands(6). Total: 15. 23:49 Eye Response: spontaneous(4). Verbal Response: oriented(5). Motor Response: obeys ss commands(6). Total: 15. Trauma Score (Adult): 22:49 Eye Response: spontaneous(1); Verbal Response: oriented(1); Motor Response: obeys da3 commands(2); Systolic BP: > 89 mm Hg(4); Respiratory Rate: 10 to 29 per min(4); Ute Score: 15; Trauma Score: 12 23:49 Eye Response: spontaneous(1); Verbal Response: oriented(1); Motor Response: obeys ss commands(2); Systolic BP: > 89 mm Hg(4); Respiratory Rate: 10 to 29 per min(4); Ute Score: 15; Trauma Score: 12 MDM: 23:05 Patient medically screened. 09/15 00:00 Differential diagnosis: closed head injury, contusion, fracture, multiple trauma. 01:16 Data reviewed: vital signs, nurses notes, lab test result(s), radiologic studies, CT cp scan. 01:16 Counseling: I had a detailed discussion with the patient and/or guardian regarding: the cp historical points, exam findings, and any diagnostic results supporting the discharge/admit diagnosis, lab results, radiology results, to return to the emergency department if symptoms worsen or persist or if there are any questions or concerns that arise at home. Response to treatment: the patient's symptoms have markedly improved after treatment, VSS. Pain improved. CT trauma negative for acute findings. Will discharge to home for continued monitoring. 09/14 22:50 Order name: Basic Metabolic Panel; Complete Time: 00:36 cp 09/15 00:37 Interpretation: Normal except: CL 109; GLUC 136. 09/14 22:50 Order name: CBC with Diff; Complete Time: 00:36 cp 12 00:37 Interpretation: Normal except: WBC 13.50; MCV 79.4; MCH 26.0; MPV 7.3. cp 09/14 22:50 Order name: Type And Screen; Complete Time: 00:36 cp 09/14 22:50 Order name: CT Traumagram (Head C Spine CAP W Con) cp 09/14 23:15 Order name: Urine Dipstick-Ancillary; Complete Time: 00:36 EDMS 09/15 01:06 Interpretation: Normal except: UESTR Trace. cp 09/14 23:18 Order name: Urine --Ancillary (enter results); Complete Time: 00:36 cs9 09/14 22:50 Order name: Labs collected and sent; Complete Time: 23:22 cp 09/14 22:50 Order name: Urine Dipstick-Ancillary (obtain specimen); Complete Time: 23:22 cp 09/14 22:50 Order name: Urine Test (obtain specimen); Complete Time: 23:22 cp Administered Medications: 09/14 11:18 Drug: Zofran (Ondansetron) 4 mg Route: IVP; Site: right antecubital; ss 23:22 Drug: fentaNYL (PF) 25 mcg Route: IVP; Site: right antecubital; ss Disposition: 09/15 02:52 Co-signature as Attending Physician, Shiv Baltazar MD I agree with the assessment and rn plan of care. Attestation: The patient's history, exam findings, diagnostics, and a summary of any interventions or procedures was reviewed in detail with Ap BENNETT. Disposition Summary: 09/15/21 01:17 Discharge Ordered Location: Home cp Problem: new cp Symptoms: have improved cp Condition: Stable cp Diagnosis - Fall on same level from slipping, tripping and stumbling without subsequent cp striking against object - Cervicalgia cp - Dorsalgia, unspecified cp Followup: cp - With: Private Physician - When: 2 - 3 days - Reason: Recheck today's complaints Discharge Instructions: - Discharge Summary Sheet cp - Acute Back Pain, Adult cp - Neck Exercises cp Forms: - Medication Reconciliation Form cp - Thank You Letter cp - Antibiotic Education cp - Prescription Opioid Use cp Prescriptions: - Lidoderm 5 % Topical adhesive patch,medicated - apply 1 patch by TOPICAL route once daily; 1 box; Refills: 0, Product Selection cp Permitted - Cyclobenzaprine 10 mg Oral Tablet - take 1 tablet by ORAL route every 8 hours As needed; 20 tablet; Refills: 0, cp Product Selection Permitted - Naprosyn 500 mg Oral Tablet - take 1 tablet by ORAL route 2 times per day take with food; 20 tablet; Refills: cp 0, Product Selection Permitted - Tramadol 50 mg Oral Tablet - take 1 tablet by ORAL route every 8 hours as needed; 12 tablet; Refills: 0, cp Product Selection Permitted Signatures: Dispatcher [employer] EDShiv Laughlin MD MD rn Smirch, Shelby, RN RN ss Page, Corey, PA PA cp Arnie Anton, RN RN da3
[2021-09-15 01:50] VITALS: TEMP 99; O2SAT 100
[2021-09-15 01:52] VITALS: BP 126/83
--- NOTE | 2021-09-15 13:52 | RAD REPORT ---
EXAM DESCRIPTION: CT - Head C Spine [place] [place] - 09/15/2021 12:34 am CLINICAL HISTORY: The patient is 40 years old and is Female; Pain;Lower back pain TECHNIQUE: Axial computed tomography images of the head/brain and cervical spine without intravenous contrast. Sagittal and coronal reformatted images were created and reviewed. This CT exam was pe rformed using one or more of the following dose reduction techniques: automated exposure control, a djustment of the mA and/or kV according to patient size, and/or use of iterative reconstruction techn ique. DLP: 2718 mGy*cm COMPARISON: None. FINDINGS: BRAIN: Unremarkable. No hemorrhage. No significant white matter disease. No edema. VENTRICLES: Unremarkable. No ventriculomegaly. SKULL: No acute fracture. SINUSES: Unremarkable as visualized. No acute sinusitis. MASTOID AIR CELLS: Unremarkable as visualized. No mastoid effusion. VERTEBRAE: Straightening of the cervical lordosis. No acute fracture. DISCS/SPINAL CANAL/NEURAL FORAMINA: Large C5-6 disc osteophyte complex with spinal canal and bilate ral neural foraminal stenosis. SOFT TISSUES: Unremarkable. IMPRESSION: 1. No acute intracranial abnormality. 2. No cervical spine fracture or subluxation. 3. Large C5-6 disc osteophyte complex with spinal canal and bilateral neural foraminal stenosis. 4. Straightening of the cervical lordosis. Findings may be due to muscle spasm. EXAM DESCRIPTION: CT Chest, Abdomen and Pelvis With Intravenous Contrast CLINICAL HISTORY: The patient is 40 years old and is Female; Pain;Lower back pain TECHNIQUE: Axial computed tomography images of the chest, abdomen and pelvis with intravenous contra st. Sagittal and coronal reformatted images were created and reviewed. This CT exam was performed using one or more of the following dose reduction techniques: automated exposure control, adjustme nt of the mA and/or kV according to patient size, and/or use of iterative reconstruction technique. COMPARISON: None. FINDINGS: CHEST: LUNGS: Dependent subsegmental atelectasis in the right lung. No focal consolidation. PLEURAL SPACE: Unremarkable. No significant effusion. No pneumothorax. HEART: Unremarkable. No cardiomegaly. No significant pericardial effusion. ABDOMEN: LIVER: Unremarkable. No mass. GALLBLADDER AND BILE DUCTS: Unremarkable. No calcified stones. No ductal dilation. PANCREAS: Unremarkable. No ductal dilation. No mass. SPLEEN: Unremarkable. No splenomegaly. ADRENALS: Unremarkable. No mass. KIDNEYS AND URETERS: Unremarkable. No hydronephrosis. No solid mass. STOMACH AND BOWEL: Unremarkable. No obstruction. No mucosal thickening. PELVIS: APPENDIX: The appendix is seen and is within normal limits. BLADDER: Bladder is decompressed. REPRODUCTIVE: 1.5 cm left ovarian corpus luteal cyst. CHEST, ABDOMEN and PELVIS: INTRAPERITONEAL SPACE: Unremarkable. No significant fluid collection. No free air. BONES/JOINTS: Unremarkable. No acute fracture. No dislocation. SOFT TISSUES: Small fat-containing umbilical hernia. VASCULATURE: Unremarkable. No aortic aneurysm. LYMPH NODES: Unremarkable. No enlarged lymph nodes. IMPRESSION: No acute intrathoracic, abdominal or pelvic abnormality. 1.5 cm left ovarian corpus luteal cyst. No follow-up imaging is recommended. Reference: US recommendations based on Radiology 2010 Sep;256(3):943-54; CT/MR recommendations based on J Am Brian Radiol 2013;10:675-681. 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 The interpreting radiologist is fully responsible for the content of the report.
== END 2021-09-15 01:38 | disposition home or self-care (01) ==
LOC: ER 22:37
DX: M54.9 Dorsalgia, unspecified (principal); M54.2 Cervicalgia; W01.0XXA Fall on same level from slipping, tripping and stumbling without subsequent striking against object, initial encounter; Z88.3 Allergy status to other anti-infective agents; Z91.048 Other nonmedicinal substance allergy status
CPT/HCPCS: 36415; 70450; 71260; 72125; 74177; 80048; 81003; 81025; 85025; 86850; 86900; 86901; 96374; 96375; 99284; J2405; J3010; Q9967

== ENCOUNTER 2022-03-17 13:30 | Emergency (ER) | payer OTHER, SELFPAY ==
--- OUTSIDE RECORDS SUMMARY | 2022-03-17 13:32 | XMS REPORT | Continuity of Care Document ---
:1980 Author Organization [facility] t Address [address] [place] [address] Care Team Providers Name Role Phone Ade BERGMAN Attending Clinician Unavailable IMAN SLATER Attending Clinician Unavailable THAIS, Chaya Attending Clinician Unavailable Thais MSN, A Attending Clinician Doctor Unassigned, Name Attending Clinician Unavailable Payers Payer Name Policy Type Policy Number Effective Date Expiration Date S melinda [id number] 2018 00:00:00 Problems This patient has no known problems. Allergies, Adverse Reactions, Alerts Allergy Allergy Status Severity Reaction(s) Onset Inactive Treating Comm ents Source Name Type Date Date Clinician ERYTHROM DRUG Active Hives Univers YCIN 5-05 ity of 00:00: [address] IRON DRUG Active Anaphylaxis Unive rs INGREDI 05 ity of 00:00: [place] 00 [facility] AZITHROM DRUG Active Unknown-Cmnt Un tello YCIN INGREDI 5-05 ity of 00:00: [address] Medications This patient has no known medications. Procedures This patient has no known procedures. Encounters Start End Encounter Admission Attending Care Care Encounter Source Date/Time Date/Time Type Type Clinicians Facility Department ID 2021-07-24 Outpatient [facility] [id number] [facility] 12:46:39 [id number] [facility] 2021-07-24 Outpatient [facility] [id number] Legacy 12:32:48 [id number] [facility] 2021-06-01 2021-06-01 Outpatient R AKINSIPE, [place] [id number] Univers 10:30:00 10:30:00 ARCHIE [id number] ity o [facility] 2021-06-01 2021-06-01 Outpatient R AKINSIPE, [place] [id number] Univers 10:30:00 10:30:00 ARCHIE ity o f [facility] 2021-05-11 2021-05-11 Outpatient EBONIE SLATER [place] [id number] Univers 10:00:00 10:00:00 [id number] [facility] 2021-05-11 2021-05-11 Outpatient R NOHEMY [facility] [id number] Univers 10:00:00 10:00:00 [facility] 2021-05-05 2021-05-05 Outpatient R AKINSIPE, [place] [id number] Univers 15:00:00 15:00:00 ARCHIE [id number] ity o [facility] 2021-05-05 2021-05-05 Outpatient R AKINSIPE, [place] [id number] Univers 15:00:00 15:00:00 ARCHIE itjohn o [facility] 2021-04-29 2021-04-29 Outpatient NOHEMY EBONIE [place] [id number] Univers 14:45:00 14:45:00 [id number] [facility] 2021-04-29 2021-04-29 Outpatient R NOHEMY [facility] [id number] Univers 14:45:00 14:45:00 [facility] 2020-06-21 2020-06-21 Outpatient R THAIS, [place] [id number] Univers 09:00:00 09:00:00 [facility] 2020-06-21 Outpatient R THAIS, [place] [id number] Univers 09:00:00 09:00:00 [facility] [id number] [facility]-05-10 2020-05-10 Office ThaisRUST [id number] 10:21:50 12:13:46 Visit Theresa Larkin CHEMICAL CHECKER [id number] [facility] [id number] MATERNAL [id number] & CHILD [address] [place] [address] 2020-05-10 2020-05-10 Outpatient CARRIEAASHISH [place] [id number] Univers 10:30:00 10:30:00 THERESA [id number] krystina mendoza [facility] 2020-05-10 2020-05-10 [facility] [id number] Univers 10:30:00 10:30:00 THERESA mendoza [facility] 2020-05-10 2020-05-10 Orders Doctor KRISTIN [id number] 00:00:00 00:00:00 Only Unassigned, KELI [id number] [place] [id number] 2020-04-23 2020-04-23 [facility] [id number] Univers 09:15:00 09:15:00 THERESA mendoza [facility] 2019-11-28 2019-11-28 Emergency E MHBL MHBL [id number] MHBL 19:15:00 19:15:00 2019-11-23 2019-11-23 Emergency E MHBL MHBL [id number] MHBL 09:55:00 09:55:00 2019-05-31 2019-05-31 Emergency E MHBL MHBL [id number] MHBL 09:27:00 09:27:00 2019-05-07 2019-05-07 Emergency E MHBL MHBL [id number] MHBL 08:04:00 08:04:00 Results This patient has no known results.
[2022-03-17] MEDS ORDERED: IBUPROFEN 200 MG TAB PO ONE (14:16)
--- NOTE | 2022-03-17 15:17 | ER ---
Nurse's Notes [facility] Name: Norma Bowman Age: 41 yrs Sex: Female : 1980 Arrival Date: 03/17/2022 Time: 13:31 Bed 11 Private MD: Diagnosis: Acute serous otitis media, right ear;Acute pharyngitis, unspecified Presentation: 03/17 13:39 Chief complaint: Patient states: my right ear is the worse. it started feeling bad tw2 Sunday. i cant sleep. my throat hurts. my snot is super green and eyes are on fire. my body hurts. Coronavirus screen: congestion, cough unrelated to allergies, fever, runny nose, Client presents with at least one sign or symptom that may indicate coronavirus-19. Standard/surgical mask placed on the client. Provider contacted for isolation considerations. Ebola Screen: Patient denies travel to an Ebola-affected area in the 21 days before illness onset. Initial Sepsis Screen: Does the patient meet any 2 criteria? No. Patient's initial sepsis screen is negative. Does the patient have a suspected source of infection? No. Patient's initial sepsis screen is negative. Risk Assessment: Do you want to hurt yourself or someone else? Patient reports no desire to harm self or others. Onset of symptoms was March 17, 2022. 13:39 Method Of Arrival: Ambulatory tw2 13:39 Acuity: LAURENT 4 tw2 Triage Assessment: 13:41 General: Appears uncomfortable, Behavior is crying. Pain: Complains of pain in right tw2 ear. EENT: Reports pain in right ear when swallowing. 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 - Social history:: Smoking status: Patient reports the use of cigarette tobacco products, smokes one pack cigarettes per day. havent smoked in a few days. Screenin:49 Abuse screen: Denies threats or abuse. Nutritional screening: No deficits noted. tw2 Tuberculosis screening: No symptoms or risk factors identified. Fall Risk None identified. Assessment: 14:16 General: Appears in no apparent distress. Behavior is crying. Neuro: Level of iw Consciousness is awake, alert, obeys commands, Oriented to person, place, time, situation, Moves all extremities. Full function. Respiratory: Airway is patent Respiratory effort is even, unlabored, Breath sounds are clear bilaterally. EENT: Throat is reddened bilaterally. Derm: Skin is intact, is healthy with good turgor. Vital Signs: 13:39 BP 141 / 86; Pulse 97; Resp 17; Temp 99.9(TE); Pulse Ox 100% on R/A; Weight 86.18 kg tw2 (R); Height 5 ft. 8 in. (172.72 cm); Pain 10/10; 13:39 Body Mass Index 28.89 (86.18 kg, 172.72 cm) tw2 ED Course: 13:31 Patient arrived in ED. jj6 13:40 Triage completed. tw2 13:41 Arm band placed on. tw2 13:42 Theresa Medina FNP [facility] 13:42 Ap Coello MD is Attending Physician. [facility] 14:03 Teresita Alfredo, RN is Primary Nurse. iw 14:16 Flu Sent. iw 14:16 Strep Sent. iw 14:17 Patient has correct armband on for positive identification. iw 15:49 No provider procedures requiring assistance completed. Patient did not have IV access iw during this emergency room visit. Administered Medications: 14:16 Drug: Ibuprofen 600 mg Route: PO; iw 15:00 Follow up: Response: No adverse reaction iw Medication: 13:50 VIS not applicable for this client. tw2 Outcome: 15:16 Discharge ordered by . 7 15:49 Discharged to home ambulatory. iw 15:49 Condition: good 15:49 Discharge instructions given to patient, Instructed on discharge instructions, follow up and referral plans. Demonstrated understanding of instructions, follow-up care, Prescriptions given X 1. 15:50 Patient left the ED. iw Signatures: Teresita Alfredo, RN RN iw Anna Denton RN RN tw2 Theresa Huerta jj6 Theresa Medina FNP MANAGER DIGITAL AD OPERATIONS [facility] Corrections: (The following items were deleted from the chart) 06/11 08:11 06 15:49 Discharge instructions given to patient, Instructed on discharge iw instructions, follow up and referral plans. Demonstrated understanding of instructions, follow-up care, iw
--- NOTE | 2022-03-17 15:17 | EDPHYS ---
Physician Documentation [facility] Name: Norma Bowman Age: 41 yrs Sex: Female : 1980 Arrival Date: 03/17/2022 Time: 13:31 Bed 11 Private MD: LAYLA Physician Ap Coello HPI: 03/17 14:05 This 41 yrs old Black Female presents to ER via Ambulatory with complaints of Sore jh7 Throat, Ear Pain, Headache. 14:05 The patient describes throat pain as burning. Onset: The symptoms/episode jh7 began/occurred 2 day(s) ago. Patient complains of sore throat, body aches, and right ear pain for the past 2 days. States that she took [place] flu this morning.. 14:22 The patient presents with sore throat. 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 - Social history:: Smoking status: Patient reports the use of cigarette tobacco products, smokes one pack cigarettes per day. havent smoked in a few days. ROS: 14:05 Cardiovascular: Negative for chest pain, palpitations, and edema, Respiratory: Negative jh7 for shortness of breath, cough, wheezing, and pleuritic chest pain, Abdomen/GI: Negative for abdominal pain, nausea, vomiting, diarrhea, and constipation, Back: Negative for injury and pain, MS/Extremity: Negative for injury and deformity, Skin: Negative for injury, rash, and discoloration, Neuro: Negative for headache, weakness, numbness, tingling, and seizure. 14:05 Constitutional: Positive for body aches, fatigue, Negative for fever. 14:05 ENT: Positive for ear pain, sore throat, Negative for injury or acute deformity, nasal discharge, sinus congestion. 14:05 All other systems are negative. Exam: 14:05 Neck: Trachea midline, no thyromegaly or masses palpated, and no cervical jh7 lymphadenopathy. Supple, full range of motion without nuchal rigidity, or vertebral point tenderness. No Meningismus. Cardiovascular: Regular rate and rhythm with a normal S1 and S2. No gallops, murmurs, or rubs. Normal PMI, no JVD. No pulse deficits. Respiratory: Lungs have equal breath sounds bilaterally, clear to auscultation and percussion. No rales, rhonchi or wheezes noted. No increased work of breathing, no retractions or nasal flaring. Abdomen/GI: Soft, non-tender, with normal bowel sounds. No distension or tympany. No guarding or rebound. No evidence of tenderness throughout. Back: No spinal tenderness. No costovertebral tenderness. Full range of motion. Skin: Warm, dry with normal turgor. Normal color with no rashes, no lesions, and no evidence of cellulitis. MS/ Extremity: Pulses equal, no cyanosis. Neurovascular intact. Full, normal range of motion. Neuro: Awake and alert, GCS 15, oriented to person, place, time, and situation. Normal gait. 14:05 Constitutional: The patient appears alert, awake, Crying 14:05 ENT: Ear canal(s): Right ear canal is tender, TM's: bulging, on the right, erythema, that is moderate, on the right, Nose: is normal, Posterior pharynx: erythema, exudate, that is mild. Vital Signs: 13:39 BP 141 / 86; Pulse 97; Resp 17; Temp 99.9(TE); Pulse Ox 100% on R/A; Weight 86.18 kg tw2 (R); Height 5 ft. 8 in. (172.72 cm); Pain 10/10; 13:39 Body Mass Index 28.89 (86.18 kg, 172.72 cm) tw2 MDM: 13:57 Patient medically screened. [facility] 15:21 Differential diagnosis: tonsillitis, viral syndrome Otitis media. Data reviewed: vital [facility] signs, nurses notes, lab test result(s). Data interpreted: Pulse oximetry: is 100 %. Interpretation: normal. Counseling: I had a detailed discussion with the patient and/or guardian regarding: the historical points, exam findings, and any diagnostic results supporting the discharge/admit diagnosis, to return to the emergency department if symptoms worsen or persist or if there are any questions or concerns that arise at home. ED course: . ED course: The patient remained stable throughout the ER visit. She was informed that she had an ear infection and would be prescribed antibiotics. If she develops any new concerning symptoms, she may return to the ER at any time for re eval.. 03/17 13:50 Order name: Strep; Complete Time: 15:15 7 03/17 13:50 Order name: Flu; Complete Time: 15:15 7 03/17 15:16 Order name: Throat Culture EDMS Administered Medications: 14:16 Drug: Ibuprofen 600 mg Route: PO; iw 15:00 Follow up: Response: No adverse reaction iw Disposition Summary: 03/17/22 15:16 Discharge Ordered Location: Home [facility] Problem: new [facility] Symptoms: have improved [facility] Condition: Stable [facility] Diagnosis - Acute serous otitis media, right ear jh7 - Acute pharyngitis, unspecified jh7 Followup: [facility] - With: Private Physician - When: 2 - 3 days - Reason: Recheck today's complaints Discharge Instructions: - Discharge Summary Sheet tw2 - Otitis Media, Adult jh7 - Pharyngitis jh7 - Sore Throat [facility] Forms: - Work release form tw2 - Medication Reconciliation Form 7 - Thank You Letter 7 - Antibiotic Education [facility] Prescriptions: - Amoxicillin 875 mg Oral Tablet - take 1 tablet by ORAL route every 12 hours for 10 days; 20 tablet; Refills: 0, jh7 Product Selection Permitted Signatures: Dispatcher [employer] Teresita Greenfield RN JOSE A Anna Denton RN RN tw2 Theresa Medina FNP DIRECTOR OF SLEEP [facility]
[2022-03-17 16:15] VITALS: BP 141/86; TEMP 99.9; O2SAT 100
== END 2022-03-17 15:50 | disposition home or self-care (01) ==
LOC: ER 13:30
DX: H65.01 Acute serous otitis media, right ear (principal); J02.9 Acute pharyngitis, unspecified; R51.9 Headache, unspecified; F17.210 Nicotine dependence, cigarettes, uncomplicated; Z88.1 Allergy status to other antibiotic agents
CPT/HCPCS: 87070; 87081; 87804; 99283

== ENCOUNTER 2022-04-01 08:18 | Emergency (ER) | payer OTHER ==
--- OUTSIDE RECORDS SUMMARY | 2022-04-01 08:21 | XMS REPORT | Continuity of Care Document ---
:1980 Author Organization [facility] t Address [address] [place] [address] Care Team Providers Name Role Phone Ade BERGMAN Attending Clinician Unavailable IMAN SLATER Attending Clinician Unavailable THAIS, Chaya Attending Clinician Unavailable Thais MSN, A Attending Clinician Doctor Unassigned, Name Attending Clinician Unavailable Payers Payer Name Policy Type Policy Number Effective Date Expiration Date S melinda HTW-RMCHP [id number] 2018 00:00:00 Problems This patient has no known problems. Allergies, Adverse Reactions, Alerts Allergy Allergy Status Severity Reaction(s) Onset Inactive Treating Comm ents Source Name Type Date Date Clinician ERYTHROM DRUG Active Hives Univers YCIN 5-05 ity of 00:00: [address] IRON DRUG Active Anaphylaxis Unive rs INGREDI 05 ity of 00:00: [place] 00 [facility] AZITHROM DRUG Active Unknown-Cmnt Un tello YCIN INGREDI 5-05 ity of 00:00: [address] Medications This patient has no known medications. Procedures This patient has no known procedures. Encounters Start End Encounter Admission Attending Care Care Encounter Source Date/Time Date/Time Type Type Clinicians Facility Department ID 2021-07-24 Outpatient [facility] [id number] [facility] 12:46:39 [id number] [facility] 2021-07-24 Outpatient [facility] [id number] [facility] 12:32:48 [id number] [facility] 2021-06-01 2021-06-01 Outpatient R AKINSIPE, [facility] [id number] Univers 10:30:00 10:30:00 ARCHIE [id number] ity o [facility] 2021-06-01 2021-06-01 Outpatient R AKINSIPE, [facility] [id number] Univers 10:30:00 10:30:00 ARCHIE ity o f [facility] 2021-05-11 2021-05-11 Outpatient EBONIE SLATER [facility] [id number] Univers 10:00:00 10:00:00 [id number] [facility] 2021-05-11 2021-05-11 Outpatient R NOHEMY [facility] [id number] Univers 10:00:00 10:00:00 [facility] 2021-05-05 2021-05-05 Outpatient R AKINSIPE, [facility] [id number] Univers 15:00:00 15:00:00 ARCHIE [id number] ity o [facility] 2021-05-05 2021-05-05 Outpatient R AKINSIPE, [facility] [id number] Univers 15:00:00 15:00:00 ARCHIE itjohn o [facility] 2021-04-29 2021-04-29 Outpatient NOHEMY EBONIE [facility] [id number] Univers 14:45:00 14:45:00 [id number] [facility] 2021-04-29 2021-04-29 Outpatient R NOHEMY [facility] [id number] Univers 14:45:00 14:45:00 [facility] 2020-06-21 2020-06-21 Outpatient R THAIS, [facility] [id number] Univers 09:00:00 09:00:00 [facility] 2020-06-21 Outpatient R THAIS, [facility] [id number] Univers 09:00:00 09:00:00 [facility] [id number] [facility]10 2020-05-10 [facility] [id number] 10:21:50 12:13:46 Visit Theresa Larkin [facility] [facility] [id number] [facility] [id number] MATERNAL [id number] & CHILD [address] [place] [address] 2020-05-10 2020-05-10 Outpatient CARRIEAASHISH [facility] [id number] Univers 10:30:00 10:30:00 THERESA [id number] krystina mendoza [facility] 2020-05-10 2020-05-10 [facility] [id number] Univers 10:30:00 10:30:00 THERESA mendoza [facility] 2020-05-10 2020-05-10 Orders Doctor KRISTIN [id number] 00:00:00 00:00:00 Only Unassigned, KELI [id number] Kirk [id number] 2020-04-23 2020-04-23 [facility] [id number] Univers 09:15:00 09:15:00 THERESA mendoza [facility] 2019-11-28 2019-11-28 Emergency E [facility]BL [facility]BL [id number] MHBL 19:15:00 19:15:00 2019-11-23 2019-11-23 Emergency E MHBL [facility]BL [id number] MHBL 09:55:00 09:55:00 2019-05-31 2019-05-31 Emergency E MHBL [facility]BL [id number] MHBL 09:27:00 09:27:00 2019-05-07 2019-05-07 Emergency E MHBL [facility]BL [id number] MHBL 08:04:00 08:04:00 Results This patient has no known results.
--- NOTE | 2022-04-01 08:44 | EDPHYS ---
Physician Documentation [facility] Name: Norma Bowman Age: 41 yrs Sex: Female : 1980 Arrival Date: 04/01/2022 Time: 08:19 Bed 18 Private MD: ED Physician Rui Morales HPI: 04/01 08:42 This 41 yrs old Black Female presents to ER via Ambulatory with complaints of Sore ma2 Throat, Ear Pain. 08:42 Onset: The symptoms/episode began/occurred gradually, 2 day(s) ago. Associated signs ma2 and symptoms: Pertinent negatives cough, earache, fever, headache, nausea. Historical: - Allergies: 08:33 Erythromycin; ww 08:33 IV IRON; ww - PMHx: 08:33 IRON DEFICIENCY ANEMIA; ww - Immunization history:: Adult Immunizations. - Social history:: Smoking status: Patient reports the use of cigarette tobacco products, smokes one-half pack cigarettes per day. - Family history:: not pertinent. ROS: 08:42 Constitutional: Negative for fever, chills, and weight loss. ma2 08:42 All other systems are negative. Exam: 08:42 Constitutional: This is a well developed, well nourished patient who is awake, alert, ma2 and in no acute distress. Head/Face: Normocephalic, atraumatic. Eyes: Pupils equal round and reactive to light, extra-ocular motions intact. Lids and lashes normal. Conjunctiva and sclera are non-icteric and not injected. Cornea within normal limits. Periorbital areas with no swelling, redness, or edema. ENT: Nares patent. No nasal discharge, no septal abnormalities noted. Tympanic membranes are normal and external auditory canals are clear. Oropharynx with no redness, swelling, or masses, exudates, or evidence of obstruction, uvula midline. Mucous membranes moist. Neck: Trachea midline, no thyromegaly or masses palpated, and no cervical lymphadenopathy. Supple, full range of motion without nuchal rigidity, or vertebral point tenderness. No Meningismus. Chest/axilla: Normal chest wall appearance and motion. Nontender with no deformity. No lesions are appreciated. Cardiovascular: Regular rate and rhythm with a normal S1 and S2. No gallops, murmurs, or rubs. Normal PMI, no JVD. No pulse deficits. Respiratory: Lungs have equal breath sounds bilaterally, clear to auscultation and percussion. No rales, rhonchi or wheezes noted. No increased work of breathing, no retractions or nasal flaring. Abdomen/GI: Soft, non-tender, with normal bowel sounds. No distension or tympany. No guarding or rebound. No evidence of tenderness throughout. Skin: Warm, dry with normal turgor. Normal color with no rashes, no lesions, and no evidence of cellulitis. MS/ Extremity: Pulses equal, no cyanosis. Neurovascular intact. Full, normal range of motion. Neuro: Awake and alert, GCS 15, oriented to person, place, time, and situation. Cranial nerves II-XII grossly intact. Motor strength 5/5 in all extremities. Sensory grossly intact. Cerebellar exam normal. Normal gait. Vital Signs: 08:29 BP 142 / 80; Pulse 85; Resp 16; Temp 97.0; Pulse Ox 99% on R/A; Weight 88.45 kg; Height em1 5 ft. 8 in. (172.72 cm); Pain 3/10; 08:29 Body Mass Index 29.65 (88.45 kg, 172.72 cm) em1 MDM: 08:33 Patient medically screened. ma2 08:42 Differential diagnosis: bronchitis, gastroesophageal reflux disease, pharyngitis. Data ma2 reviewed: vital signs, nurses notes. Counseling: I had a detailed discussion with the patient and/or guardian regarding: the historical points, exam findings, and any diagnostic results supporting the discharge/admit diagnosis, the presence of at least one elevated blood pressure reading (>120/80) during this emergency department visit, the need for outpatient follow up. Response to treatment: the patient's symptoms have markedly improved after treatment. Administered Medications: No medications were administered Disposition Summary: 04/01/22 08:44 Discharge Ordered Location: Home ma2 Condition: Stable ma2 Diagnosis - Chronic pharyngitis ma2 Followup: ma2 - With: Private Physician - When: Tomorrow - Reason: If symptoms return, Continuance of care Discharge Instructions: - Discharge Summary Sheet ma2 - Pharyngitis ma2 Forms: - Medication Reconciliation Form ma2 - Thank You Letter ma2 - Antibiotic Education ma2 - Prescription Opioid Use ma2 - Work release form ww Prescriptions: - Diclofenac Sodium 75 mg Oral Tablet Sustained Release - take 1 tablet by ORAL route 2 times per day; 30 tablet; Refills: 0, Product ma2 Selection Permitted - Zithromax Z-Sebas 250 mg Oral Tablet - take 1 tablet by ORAL route as directed for 5 days Day 1 - take two (2) tablets ma2 one time. Day 2, 3, 4 , 5 take one (1) tablet once daily.; 6 tablet; Refills: 0, Product Selection Permitted - Medrol (Sebas) 4 mg Oral Tablets, Dose Pack - take 1 tablet by ORAL route as directed - follow package instructions; 1 ma2 packet; Refills: 0, Product Selection Permitted - Augmentin 875-125 mg Oral Tablet - take 1 tablet by ORAL route every 12 hours for 10 days; 20 tablet; Refills: 0, ma2 Product Selection Permitted Signatures: Rui Morales MD MD ma2 Gayle Escamilla RN RN ww
--- NOTE | 2022-04-01 08:44 | ER ---
Nurse's Notes [facility] Name: Norma Bowman Age: 41 yrs Sex: Female : 1980 Arrival Date: 04/01/2022 Time: 08:19 Bed 18 Private MD: Diagnosis: Chronic pharyngitis Presentation: 04/01 08:36 Chief complaint: Patient states: Sore throat, left ear pain, green phlegm that started ww a few days ago. Recently diagnosis with strep throat 2 weeks ago. Coronavirus screen: Client denies travel out of the [place] in the last 14 days. Ebola Screen: Patient denies travel to an Ebola-affected area in the 21 days before illness onset. Initial Sepsis Screen: Does the patient meet any 2 criteria? No. Patient's initial sepsis screen is negative. Does the patient have a suspected source of infection? No. Patient's initial sepsis screen is negative. Risk Assessment: Do you want to hurt yourself or someone else? Patient reports no desire to harm self or others. Onset of symptoms is unknown. 08:36 Method Of Arrival: Ambulatory ww 08:36 Acuity: LAURENT 4 ww Triage Assessment: 08:36 General: Appears in no apparent distress. Behavior is cooperative. Pain: Complains of ww pain in uvula, left aspect of posterior pharynx and right aspect of posterior pharynx. EENT: Reports pain in uvula, left aspect of posterior pharynx and right aspect of posterior pharynx when swallowing. Neuro: Level of Consciousness is awake, alert, obeys commands, Oriented to person, place, time, situation, Moves all extremities. Gait is steady, Speech is normal. Cardiovascular: Capillary refill < 3 seconds Patient's skin is warm and dry. Respiratory: Reports cough that is Airway is patent Respiratory effort is even, unlabored, Respiratory pattern is regular, symmetrical. GI: No signs and/or symptoms were reported involving the gastrointestinal system. Derm: No signs and/or symptoms reported regarding the dermatologic system. Skin is intact, is healthy with good turgor. Musculoskeletal: No signs and/or symptoms reported regarding the musculoskeletal system. Historical: - Allergies: 08:33 Erythromycin; ww 08:33 IV IRON; ww - PMHx: 08:33 IRON DEFICIENCY ANEMIA; ww - Immunization history:: Adult Immunizations. - Social history:: Smoking status: Patient reports the use of cigarette tobacco products, smokes one-half pack cigarettes per day. - Family history:: not pertinent. Screenin:40 Abuse screen: Denies threats or abuse. Denies injuries from another. Nutritional ww screening: No deficits noted. Tuberculosis screening: No symptoms or risk factors identified. Fall Risk None identified. Assessment: 08:40 Reassessment: Patient appears in no apparent distress at this time. No changes from ww previously documented assessment. Patient and/or family updated on plan of care and expected duration. Pain level reassessed. Patient is alert, oriented x 3, equal unlabored respirations, skin warm/dry/pink. see triage assessment. Vital Signs: 08:29 BP 142 / 80; Pulse 85; Resp 16; Temp 97.0; Pulse Ox 99% on R/A; Weight 88.45 kg; Height em1 5 ft. 8 in. (172.72 cm); Pain 3/10; 08:29 Body Mass Index 29.65 (88.45 kg, 172.72 cm) em1 ED Course: 08:19 Patient arrived in ED. am2 08:24 Rui Morales MD is Attending Physician. ma2 08:38 Triage completed. ww 08:40 Arm band placed on. ww 08:40 Patient has correct armband on for positive identification. Bed in low position. Call ww light in reach. Side rails up X 1. 09:00 Gayle Escamilla, RN is Primary Nurse. ww 09:00 No provider procedures requiring assistance completed. Patient did not have IV access ww during this emergency room visit. Administered Medications: No medications were administered Outcome: 08:44 Discharge ordered by . wv2 09:00 Discharged to home ambulatory. ww 09:00 Condition: stable 09:00 Discharge instructions given to patient, Instructed on discharge instructions, follow up and referral plans. medication usage, safety practices, Demonstrated understanding of instructions, follow-up care, medications, Prescriptions given X 3. 09:03 Patient left the ED. ww Signatures: Edgar Gibson em1 Kaila Burgos am2 Rui Morales MD MD ma2 Wood, Whitney RN RN dov
[2022-04-01 09:10] VITALS: BP 142/80; TEMP 97; O2SAT 99
== END 2022-04-01 09:03 | disposition home or self-care (01) ==
LOC: ER 08:18
DX: J31.2 Chronic pharyngitis (principal); F17.210 Nicotine dependence, cigarettes, uncomplicated; Z88.3 Allergy status to other anti-infective agents; Z88.8 Allergy status to other drugs, medicaments and biological substances
CPT/HCPCS: 99282

== ENCOUNTER 2022-10-03 04:34 | Emergency (ER) | payer OTHER ==
--- OUTSIDE RECORDS SUMMARY | 2022-10-03 04:37 | XMS REPORT | Continuity of Care Document ---
:1980 Author Organization [facility] t Address [address] [place] [address] Care Team Providers Name Role Phone THERESA PLASCENCIA Primary Care Physician Unavailable ARCHIE BERGMAN Attending Clinician Unavailable EBONIE SLATER Attending Clinician Unavailable THERESA PLASCENCIA Attending Clinician Unavailable Theresa Weaver Attending Clinician Doctor Unassigned, [place] Attending Clinician Unavailable Payers Payer Name Policy Type Policy Number Effective Date Expiration Date Mannie lawrence HTW-RMCHP [id number] 2018 00:00:00 Problems This patient has no known problems. Allergies, Adverse Reactions, Alerts Allergy Allergy Status Severity Reaction(s) Onset Inactive Treating Comm ents Source Name Type Date Date Clinician Erythrom Propensi Active Method i ycin ty to 10-15 adverse 00:00: Hospita reaction 00 l s to drug Ferrous Propensi Active Methodi Sulfate ty to 10-15 adverse 00:00: Hospita reaction 00 l s to drug ERYTHROM DRUG Active Hives Univers YCIN 02-09 ity of 00:00: [address] IRON DRUG Active Anaphylaxis Unive rs INGREDI 02-09 ity of 00:00: [address] AZITHROM DRUG Active Unknown-Cmnt Un tello YCIN INGREDI 05 ity of 00:00: [place] [facility] Social History Social Habit Start Date Stop Date Quantity Comments Source History of tobacco Smokes tobacco [facility] use daily Hospital Alcohol intake 2018-04-16 2018-04-16 Current Religious 00:00:00 00:00:00 non-drinker of Hospital alcohol (finding) Cigarettes smoked 2018-01-08 2018-01-08 [facility] current (pack per 00:00:00 00:00:00 Hospita l day) - Reported Tobacco use and 2018-01-08 2018-01-08 User of smokeless [facility] exposure 00:00:00 00:00:00 tobacco Hospital Sex Assigned At [birth year] Religious 00:00:00 00:00:00 Hospital Smoking Status Start Date Stop Date Source Smokes tobacco daily 2018-01-08 00:00:00 [facility] Medications Ordered Filled Start Stop Current Ordering Indication Dosage Frequency Signature Comments Components Source Medication Medication Date Date Medication? Clinician (SIG) Name Name ondansetron Yes 4mg Q8H Take 1 Meth dick (ZOFRAN) 4 1-08 tablet (4 st MG tablet 00:00: mg total) Hos igo 00 by mouth l every 8 (eight) hours as needed for nausea or vomiting for up to 8 doses. Procedures This patient has no known procedures. Plan of Care Planned Activity Planned Date Details Comments Source Future Scheduled 2022-09-30 COVID-19 VACCINE [facility] Test 06:07:44 (#1) [code = COVID-19 VACCINE (#1)] Future Scheduled 2022-09-30 Screening for [facility] Test 06:07:44 malignant neoplasm of cervix (procedure) [code = 052591267] Future Scheduled 2022-09-30 INFLUENZA VACCINE [facility] Test 06:07:44 [code = INFLUENZA VACCINE] Encounters Start End Encounter Admission Attending Care Care Encounter Source Date/Time Date/Time Type Type Clinicians Facility Department ID 2021-07-24 Outpatient [facility] [id number] [facility] 12:46:39 [id number] [facility] 2021-07-24 Outpatient [facility] [id number] [facility] 12:32:48 [id number] [facility] 2021-06-01 2021-06-01 Outpatient R PACHECO [facility] [id number] Univers 10:30:00 10:30:00 ARCHIE flaherty [facility] 2021-05-11 2021-05-11 Outpatient R EBONIE SLATER [facility] [id number] Univers 10:00:00 10:00:00 [facility] 2021-05-05 2021-05-05 Outpatient R PACHECO [facility] [id number] Univers 15:00:00 15:00:00 ARCHIE mendoza [facility] 2021-04-29 2021-04-29 Outpatient R EBONIE SLATER [facility] [id number] Univers 14:45:00 14:45:00 [facility] 2020-06-21 2020-06-21 [facility] [id number] Univers 09:00:00 09:00:00 THERESA mendoza [facility] 2020-05-10 2020-05-10 [facility] [id number] 10:21:50 12:13:46 Visit Theresa Larkin BELLMAN [id number] [facility] [id number] MATERNAL [id number] & CHILD [address] [place] [address] 2020-05-10 2020-05-10 [facility] [id number] Univers 10:30:00 10:30:00 THERESA mendoza [facility] 2020-05-10 2020-05-10 Orders Doctor FOSTER [id number] 00:00:00 00:00:00 Only Unassigned, KELI [id number] [place] [facility] [id number] 2020-04-23 2020-04-23 [facility] [id number] Univers 09:15:00 09:15:00 THERESA mendoza [facility] 2019-11-28 2019-11-28 Emergency E MHBL [facility] [id number] MHBL 19:15:00 19:15:00 2019-11-23 2019-11-23 Emergency E MHBL [facility]BL [id number] MHBL 09:55:00 09:55:00 2019-05-31 2019-05-31 Emergency E MHBL [facility]BL [id number] MHBL 09:27:00 09:27:00 2019-05-07 2019-05-07 Emergency E MHBL [facility]BL [id number] MHBL 08:04:00 08:04:00 Results This patient has no known results.
[2022-10-03] MEDS ORDERED: NA CHLORIDE 0.9% 1,000 ML ONE (05:05)
[2022-10-03] MEDS ORDERED: ACETAMINOPHEN 325 MG TABLET ONE (05:05)
[2022-10-03 05:51] LABS: SARS-COV-2 RT PCR POSITIVE (NEGATIVE)
--- NOTE | 2022-10-03 06:07 | EDPHYS ---
Physician Documentation [facility] Name: Norma Bowman Age: 41 yrs Sex: Female : 1980 Arrival Date: 10/03/2022 Time: 04:37 Bed 8 Private MD: ED Physician Shiv Baltazar HPI: 10/03 04:58 This 41 yrs old Black Female presents to ER via Ambulatory with complaints of Diarrhea, rn Ear Pain, Sore Throat. 04:58 The patient presents to the emergency department with diarrhea. Onset: The rn symptoms/episode began/occurred yesterday. Possible causes: sick contacts, by family. The symptoms are aggravated by nothing. The symptoms are alleviated by nothing. Associated signs and symptoms: Pertinent positives: diarrhea, fever, Pertinent negatives: abdominal pain, GI bleeding. Severity of symptoms: At their worst the symptoms were moderate in the emergency department the symptoms are unchanged. The patient has not experienced similar symptoms in the past. The patient has not recently seen a physician. Pt reports congestion, earache, diarrhea, myalgias, fatigue, generalized weakness. Reports has been around brother who traveled from out of [facility] and was sick over the holidays. . 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 - Social history:: Smoking status: Patient reports the use of cigarette tobacco products, smokes one pack cigarettes per day. - Family history:: not pertinent. - Hospitalizations: : No recent hospitalization is reported. 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, ENT: + congestion and sore throat Neck: Negative for injury, pain, and swelling, Cardiovascular: Negative for chest pain, palpitations, and edema, Respiratory: Negative for shortness of breath, cough, wheezing, and pleuritic chest pain, Abdomen/GI: Negative for abdominal pain, nausea, vomiting, and constipation, MS/Extremity: Negative for injury and deformity, Skin: Negative for injury, rash, and discoloration, Neuro: Negative for headache, numbness, tingling, and seizure Exam: 04:58 Constitutional: This is a well developed, well nourished patient who is awake, alert, rn and in no acute distress. Ambulatory to room without difficulty or assistance. Head/Face: Normocephalic, atraumatic. ENT: dry MM Cardiovascular: Regular rate and rhythm. No pulse deficits. Respiratory: No increased work of breathing, no retractions or nasal flaring. Abdomen/GI: soft, non-tender Skin: Warm, dry MS/ Extremity: Pulses equal, no cyanosis. Neuro: Awake and alert, GCS 15 Vital Signs: 04:51 BP 118 / 90; Pulse 88; Resp 17; Temp 99.1(O); Pulse Ox 99% on R/A; Weight 95.25 kg (R); ll3 Height 5 ft. 8 in. (172.72 cm) (R); Pain 6/10; 06:17 BP 101 / 64; Pulse 61; Resp 18; Temp 97.8; Pulse Ox 100% ; Pain 3/10; pf1 04:51 Body Mass Index 31.93 (95.25 kg, 172.72 cm) ll3 MDM: 04:38 Patient medically screened. rn 06:07 Differential diagnosis: viral gastroenteritis, gastroenteritis, COVID. flu. Data rn reviewed: vital signs, nurses notes, lab test result(s), and as a result, I will discharge patient. Counseling: I had a detailed discussion with the patient and/or guardian regarding: the historical points, exam findings, and any diagnostic results supporting the discharge/admit diagnosis, lab results, the need for outpatient follow up, to return to the emergency department if symptoms worsen or persist or if there are any questions or concerns that arise at home. Response to treatment: the patient's symptoms have mildly improved after treatment, and as a result, I will discharge patient. Special discussion: I discussed with the patient/guardian in detail that at this point there is no indication for admission to the hospital. It is understood, however, that if the symptoms persist or worsen the patient needs to return immediately for re-evaluation. 10/03 04:39 Order name: COVID-19/FLU A+B; Complete Time: 06:04 rn 10/03 04:39 Order name: Strep; Complete Time: 06:04 rn 10/03 04:56 Order name: IV Start; Complete Time: 05:06 rn 10/03 05:47 Order name: Throat Culture EDMS Administered Medications: 05:06 Drug: NS 0.9% 1000 ml Route: IV; Rate: 1000 ml; Site: right antecubital; pf1 06:00 Follow up: Response: No adverse reaction; Marked relief of symptoms pf1 06:38 Follow up: IV Status: Completed infusion; IV Intake: 1000ml pf1 05:06 Drug: Tylenol 650 mg Route: PO; pf1 06:00 Follow up: Response: No adverse reaction; Marked relief of symptoms; Pain is decreased; pf1 RASS: Alert and Calm (0) Disposition Summary: 10/03/22 06:07 Discharge Ordered Location: Home rn Problem: new rn Symptoms: have improved rn Condition: Stable rn Diagnosis - SARS-associated coronavirus as the cause of diseases classified elsewhere rn - Dehydration rn Followup: rn - With: Private Physician - When: As needed - Reason: Recheck today's complaints, Re-evaluation by your physician Discharge Instructions: - Discharge Summary Sheet rn - Dehydration, Adult rn - COVID-19 rn - 10 Things You Can Do to Manage Your COVID-19 Symptoms at Home - [facility] rn - Viral Illness, Adult rn - Prevent the Spread of COVID-19 if You Are Sick - [facility] rn Forms: - Medication Reconciliation Form rn - Thank You Letter rn - Antibiotic discharge rn - Prescription Opioid Use rn - Work release form ll3 Signatures: Dispatcher [employer] EDMS Shiv Baltazar MD MD rn Loubet, Lynsea RN RN 3 Kelly vizcarra RN RN pf1
--- NOTE | 2022-10-03 06:07 | ER ---
Nurse's Notes [facility] Name: Norma Bowman Age: 41 yrs Sex: Female : 1980 Arrival Date: 10/03/2022 Time: 04:37 Bed 8 Private MD: Diagnosis: SARS-associated coronavirus as the cause of diseases classified elsewhere;Dehydration Presentation: 10/03 04:51 Chief complaint: Patient states: C/o sore throat, diarrhea, H/A, and right ear pain. ll3 Coronavirus screen: Vaccine status: Patient reports receiving the 2nd dose of the covid vaccine. diarrhea, headache. Ebola Screen: No symptoms or risks identified at this time. Initial Sepsis Screen: Does the patient meet any 2 criteria? No. Patient's initial sepsis screen is negative. Does the patient have a suspected source of infection? No. Patient's initial sepsis screen is negative. Risk Assessment: Do you want to hurt yourself or someone else? Patient reports no desire to harm self or others. Onset of symptoms was September 30, 2022. 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 - Social history:: Smoking status: Patient reports the use of cigarette tobacco products, smokes one pack cigarettes per day. - Family history:: not pertinent. - Hospitalizations: : No recent hospitalization is reported. Screenin:05 [facility] ED Fall Risk Assessment (Adult) History of falling in the last 3 months, pf1 including since admission No falls in past 3 months (0 pts) Confusion or Disorientation No (0 pts) Intoxicated or Sedated No (0 pts) Impaired Gait No (0 pts) Mobility Assist Device Used Yes (1 pt) Altered Elimination No (0 pt) Score/Fall Risk Level 0 - 2 = Low Risk Oriented to surroundings, Maintained a safe environment, Educated pt \T\ family on fall prevention, incl call for assistance when getting out of bed, Assessed \T\ reinforced patient's understanding of fall precautions, Provided non-skid footwear, Hourly rounding (assess needs \T\ fall precautionary measures) done, Used ambulatory aids as needed (educated on \T\ assisted with), Used gait belt as appropriate. Abuse screen: Denies threats or abuse. Nutritional screening: No deficits noted. Tuberculosis screening: No symptoms or risk factors identified. Assessment: 04:50 General: Appears in no apparent distress. uncomfortable, well groomed, well developed, pf1 Behavior is cooperative, appropriate for age, crying. 04:50 Pain: Complains of pain in right ear and sore throat,onset 3 days. Neuro: No deficits pf1 noted. Level of Consciousness is awake, alert, obeys commands, Oriented to person, place, time, situation. Cardiovascular: No deficits noted. Respiratory: Reports cough that is Airway is patent Respiratory effort is even, unlabored, Respiratory pattern is regular, symmetrical, Breath sounds are clear bilaterally. GI: Reports diarrhea, since 2 days. Patient stated 10 episodes of diarrhea in the past 24 hours. : No deficits noted. No signs and/or symptoms were reported regarding the genitourinary system. EENT: No deficits noted. EENT: Reports pain in throat and right ear pain. Derm: No deficits noted. No signs and/or symptoms reported regarding the dermatologic system. 05:39 Reassessment: Patient appears in no apparent distress at this time. No changes from pf1 previously documented assessment. Patient and/or family updated on plan of care and expected duration. Pain level reassessed. Patient is alert, oriented x 3, equal unlabored respirations, skin warm/dry/pink. Patient states feeling better. Patient states symptoms have improved. 06:17 Reassessment: Patient appears in no apparent distress at this time. No changes from pf1 previously documented assessment. Patient and/or family updated on plan of care and expected duration. Pain level reassessed. Patient is alert, oriented x 3, equal unlabored respirations, skin warm/dry/pink. Patient states feeling better. Patient states symptoms have improved. Vital Signs: 04:51 BP 118 / 90; Pulse 88; Resp 17; Temp 99.1(O); Pulse Ox 99% on R/A; Weight 95.25 kg (R); ll3 Height 5 ft. 8 in. (172.72 cm) (R); Pain 6/10; 06:17 BP 101 / 64; Pulse 61; Resp 18; Temp 97.8; Pulse Ox 100% ; Pain 3/10; pf1 04:51 Body Mass Index 31.93 (95.25 kg, 172.72 cm) ll3 ED Course: 04:37 Patient arrived in ED. ja2 04:38 Shiv Baltazar MD is Attending Physician. rn 04:44 Kelly vizcarra RN is Primary Nurse. pf1 04:50 Strep Sent. pf1 04:50 COVID-19/FLU A+B Sent. pf1 04:54 Triage completed. ll3 04:54 Arm band placed on Patient placed in an exam room, on a stretcher, on pulse oximetry. ll3 05:05 No provider procedures requiring assistance completed. Inserted saline lock: 20 gauge pf1 in right antecubital area, using aseptic technique. 05:06 Strep Sent. pf1 05:06 COVID-19/FLU A+B Sent. pf1 06:27 Patient has correct armband on for positive identification. Placed in gown. Bed in low pf1 position. Call light in reach. 06:39 IV discontinued, intact, bleeding controlled, No redness/swelling at site. Pressure pf1 dressing applied. Administered Medications: 05:06 Drug: NS 0.9% 1000 ml Route: IV; Rate: 1000 ml; Site: right antecubital; pf1 06:00 Follow up: Response: No adverse reaction; Marked relief of symptoms pf1 06:38 Follow up: IV Status: Completed infusion; IV Intake: 1000ml pf1 05:06 Drug: Tylenol 650 mg Route: PO; pf1 06:00 Follow up: Response: No adverse reaction; Marked relief of symptoms; Pain is decreased; pf1 RASS: Alert and Calm (0) Medication: 06:27 VIS not applicable for this client. pf1 Intake: 06:38 IV: 1000ml; Total: 1000ml. pf1 Outcome: 06:07 Discharge ordered by . rn 06:25 Discharged to home pf1 06:25 Discharged to home ambulatory. 06:25 Condition: improved 06:25 Discharge instructions given to patient, Instructed on discharge instructions, follow up and referral plans. medication usage, Demonstrated understanding of instructions, follow-up care. 06:39 Patient left the ED. pf1 Signatures: Shiv Baltazar MD MD rn Shanna More Lynsea, RN RN 3 Kelly vizcarra RN RN pf1 Corrections: (The following items were deleted from the chart) 06:25 06:17 BP 101 / 64; Pulse 61bpm; Resp 18bpm; Pulse Ox 100%; Pain 3/10; pf1 pf1
[2022-10-03 06:52] VITALS: BP 101/64; TEMP 97.8; O2SAT 100
== END 2022-10-03 06:39 | disposition home or self-care (01) ==
LOC: ER 04:34
DX: U07.1 COVID-19 (principal); E86.0 Dehydration; F17.210 Nicotine dependence, cigarettes, uncomplicated; Z88.3 Allergy status to other anti-infective agents; Z88.8 Allergy status to other drugs, medicaments and biological substances
CPT/HCPCS: 87070; 87081; 0240U; J7030; 96360; 96361; 99284

== ENCOUNTER 2023-01-31 15:33 | Emergency (ER) | payer OTHER ==
--- OUTSIDE RECORDS SUMMARY | 2023-01-31 15:36 | XMS REPORT | Continuity of Care Document ---
:1980 Author Organization [facility] t Address [address] [place] [address] Care Team Providers Name Role Phone Asked, No Pcp Primary Care Physician Unavailable ARCHIE BERGMAN Attending Clinician Unavailable EBONIE SLATER Attending Clinician Unavailable THERESA PLASCENCIA Attending Clinician Unavailable Theresa Weaver Attending Clinician Doctor Unassigned, [place] Attending Clinician Unavailable Payers Payer Name Policy Type Policy Number Effective Date Expiration Date S melinda [id number] 2018 00:00:00 Problems This patient has no [...] Hives Univers YCIN 02-09 ity of 00:00: [address] IRON DRUG Active Anaphylaxis Unive rs INGREDI 02-09 ity of 00:00: [address] AZITHROM DRUG Active Unknown-Cmnt 2014-0 Un tello YCIN INGREDI 5-05 ity of 00:00: [place] [facility] Social History Social Habit Start Date Stop Date Quantity Comments Source History of tobacco Cigarette Smoker [facility] Gender identity [facility] Sexual orientation [facility] Alcohol intake 2018-04-16 2018-04-16 Current [facility] 00:00:00 00:00:00 non-drinker of Hospital alcohol (finding) Cigarettes smoked 2018-01-08 2018-01-08 [facility] current (pack per 00:00:00 00:00:00 Hospita l day) - Reported Tobacco use and 2018-01-08 2018-01-08 User of [facility] exposure 00:00:00 00:00:00 smokeless Hospital tobacco Sex Assigned At [birth year] [facility] 00:00:00 00:00:00 Hospital Smoking Status Start Date Stop Date Source Smokes tobacco daily 2018-01-08 00:00:00 [facility] Medications Ordered Filled Start Stop Current Ordering Indication Dosage Frequency Signature Comments Components Source Medication Medication Date Date Medication? Clinician (SIG) Name Name ondansetron Yes 4mg Q8H Take 1 Meth dick (ZOFRAN) 4 1-08 tablet (4 st MG tablet 00:00: mg total) Hos gio 00 by mouth l every 8 (eight) hours as needed for nausea or vomiting for up to 8 doses. ondansetron Yes 4mg Q8H Take 1 Meth dick (ZOFRAN) 4 1-08 tablet (4 st MG tablet 00:00: mg total) Hos gio 00 by mouth l every 8 (eight) hours as needed for nausea or vomiting for up to 8 doses. Procedures This patient has no known procedures. Plan of Care Planned Activity Planned Date Details Comments Source Future Scheduled 2023-01-06 COVID-19 VACCINE [facility] Test 04:22:45 (#1) [code = COVID-19 VACCINE (#1)] Future Scheduled 2023-01-06 Screening for [facility] Test 04:22:45 malignant neoplasm of cervix (procedure) [code = 370639465] Future Scheduled 2023-01-06 BREAST CANCER [facility] Test 04:22:45 SCREENING [code = BREAST CANCER SCREENING] Future Scheduled 2023-01-06 INFLUENZA VACCINE [facility] Test 04:22:45 [code = INFLUENZA VACCINE] Future Scheduled 2022-09-30 [facility] 06:07:44 (#1) [code = COVID-19 VACCINE (#1)] Future Scheduled 2022-09-30 Screening for [facility] Test 06:07:44 malignant neoplasm of cervix (procedure) [code = 771440212] Future Scheduled 2022-09-30 INFLUENZA VACCINE [facility] Test 06:07:44 [code = INFLUENZA VACCINE] Encounters Start End Encounter Admission Attending Care Care Encounter Source Date/Time Date/Time Type Type Clinicians Facility Department ID 2021-07-[address] [facility] [id number] [facility] 12:46:39 [id number] [facility] 2021-07-[address] [facility] [id number] [facility] 12:32:48 [id number] [facility] 2021-06-01 2021-06-01 Outpatient Corey BERGMAN [facility] [id number] Univers 10:30:00 10:30:[address] [facility] 2021-05-11 2021-05-11 Outpatient EBONIE GARCIA [facility] [id number] Univers 10:00:00 10:00:00 [facility] 2021-05-05 2021-05-05 Outpatient R PACHECO [facility] [id number] Univers 15:00:00 15:00:00 ARCHIE mendoza [facility] 2021-04-29 2021-04-29 Outpatient Corey SLATER EBONIE [facility] [id number] Univers 14:45:00 14:45:00 [facility] 2020-06-21 2020-06-21 Outpatient Corey PLASCENCIA [facility] [id number] Univers 09:00:00 09:00:00 THERESA mendoza [facility] 2020-05-10 2020-05-10 [facility] [id number] 10:21:50 12:13:46 Visit Theresa Larkin [facility] [id number] [facility] [id number] MATERNAL [id number] & [address] 2020-05-10 2020-05-10 [facility] [id number] Univers 10:30:00 10:30:00 THERESA mendoza [facility] 2020-05-10 2020-05-10 Orders Doctor KRISTIN [id number] 00:00:00 00:00:00 Only Unassigned, KELI [id number] [place] [facility] [id number] 2020-04-23 2020-04-23 Outpatient Corey PLASCENCIA [facility] [id number] Univers 09:15:00 09:15:00 THERESA mendoza [facility] 2019-11-28 2019-11-28 Emergency E MHBL MHBL [id number] MHBL 19:15:00 19:15:00 2019-11-23 2019-11-23 Emergency E MHBL MHBL [id number] MHBL 09:55:00 09:55:00 2019-05-31 2019-05-31 Emergency E MHBL MHBL [id number] MHBL 09:27:00 09:27:00 2019-05-07 2019-05-07 Emergency E MHBL MHBL [id number] MHBL 08:04:00 08:04:00 Results This patient has no known results.
--- NOTE | 2023-01-31 16:20 | RAD REPORT ---
EXAM DESCRIPTION: US - Abdomen Exam Limited - 01/31/2023 4:05 pm CLINICAL HISTORY: Abdominal pain. COMPARISON: None. FINDINGS: The gallbladder wall is not thickened. A gallstone is not seen. The biliary tree is normal caliber. IMPRESSION: Unremarkable gallbladder ultrasound.
[2023-01-31] MEDS ORDERED: KETOROLAC 30 MG/ML INJ ONE (16:51)
[2023-01-31] MEDS ORDERED: ONDANSETRON 4 MG/2 ML VIAL ONE (16:52)
[2023-01-31] MEDS ORDERED: NA CHLORIDE 0.9% 1,000 ML ONE (16:52)
[2023-01-31] MEDS ORDERED: FAMOTIDINE 20 MG/2 ML VIAL IV ONE (16:52)
[2023-01-31 17:01] LABS: Absolute Lymphocytes (CBC) 2.7 K/uL (0.7-4.9); Hematocrit 38.6 % (36.0-45.0); Lymphocytes % 25.4 % (15.3-44.8); MCV 77.4 fL (80-100); MPV 7.6 fL (7.6-11.3); RBC Red Blood Cell Count 4.99 M/uL (3.86-4.86)
[2023-01-31 17:29] LABS: Albumin 4.2 g/dL (3.4-5.0); Bilirubin Total 0.4 mg/dL (0.2-1.0); Protein, Total 8.2 g/dL (6.4-8.2)
[2023-01-31 17:32] LABS: Potassium 3.2 mEq/L (3.5-5.1)
--- NOTE | 2023-01-31 18:22 | EDPHYS ---
Physician Documentation [facility] Name: Norma Bowman Age: 42 yrs Sex: Female : 1980 Arrival Date: 01/31/2023 Time: 15:33 Bed 6 Private MD: ED Physician Shiv Baltazar HPI: 01/31 19:13 This 42 yrs old Black Female presents to ER via Ambulatory with complaints of Vomiting. kb 19:13 The patient presents to the emergency department with nausea, vomiting. Onset: The kb symptoms/episode began/occurred 3 day(s) ago. Possible causes: unknown. The symptoms are aggravated by nothing. The symptoms are alleviated by nothing. Associated signs and symptoms: Pertinent positives: nausea, vomiting, Pertinent negatives: abdominal pain, diarrhea, fever. Severity of symptoms: At their worst the symptoms were moderate in the emergency department the symptoms are unchanged. The patient has not experienced similar symptoms in the past. The patient has not recently seen a physician. 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 - Social history:: Smoking status: Patient reports the use of cigarette tobacco products, smokes one pack cigarettes per day. ROS: 17:19 Cardiovascular: Negative for chest pain, palpitations, and edema, Respiratory: Negative kb for shortness of breath, cough, wheezing, and pleuritic chest pain. 17:19 Constitutional: Positive for chills. 17:19 Abdomen/GI: Positive for nausea and vomiting. 17:19 All other systems are negative. Exam: 17:19 Constitutional: This is a well developed, well nourished patient who is awake, alert, kb and in no acute distress. Head/Face: Normocephalic, atraumatic. ENT: Moist Mucous membranes Cardiovascular: Regular rate and rhythm with a normal S1 and S2. No gallops, murmurs, or rubs. No pulse deficits. Respiratory: Respirations even and unlabored. No increased work of breathing. Talking in full sentences Abdomen/GI: Soft, non-tender. No distention Skin: Warm, dry with normal turgor. Normal color. MS/ Extremity: Pulses equal, no cyanosis. Neurovascular intact. Full, normal range of motion. Neuro: Awake and alert, GCS 15, oriented to person, place, time, and situation. Moves all extremities. Normal gait. Vital Signs: 15:41 BP 114 / 94; Pulse 80; Resp 19; Temp 98.4; Pulse Ox 100% ; Weight 86.18 kg; Height 5 ap3 ft. 8 in. ; 16:39 BP 133 / 68; Pulse 57; Resp 18; Pulse Ox 98% on R/A; db 17:30 BP 116 / 79; Pulse 53; Resp 18; Pulse Ox 99% on R/A; db 18:15 BP 103 / 67; Pulse 49; Resp 18; Pulse Ox 99% on R/A; db 15:41 Body Mass Index 28.89 (86.18 kg, 172.72 cm) ap3 MDM: 15:38 Patient medically screened. kb 17:20 Differential diagnosis: Nonspecific abd pain, cholecystitis, viral gastroenteritis. kb Data reviewed: vital signs, nurses notes. 18:21 Counseling: I had a detailed discussion with the patient and/or guardian regarding: the kb historical points, exam findings, and any diagnostic results supporting the discharge/admit diagnosis, lab results, radiology results, the need for outpatient follow up, a family practitioner, to return to the emergency department if symptoms worsen or persist or if there are any questions or concerns that arise at home. ED course: Pt feeling better after treatment. 01/31 15:44 Order name: CBC with Diff; Complete Time: 17:27 kb 01/31 15:44 Order name: CMP; Complete Time: 17:33 kb 01/31 15:44 Order name: Lipase; Complete Time: 17:33 kb 01/31 15:44 Order name: Abdomen Limited US; Complete Time: 16:26 kb 01/31 15:44 Order name: IV Saline Lock; Complete Time: 16:54 kb 01/31 15:44 Order name: Labs collected and sent; Complete Time: 16:54 kb Administered Medications: 16:50 Drug: NS 0.9% IV 1000 ml Route: IV; Rate: 1 bolus; Site: right antecubital; db 18:26 Follow up: Response: No adverse reaction; IV Status: Completed infusion; IV Intake: db 1000ml 16:50 Drug: Ondansetron IVP 4 mg Route: IVP; Site: right antecubital; db 18:26 Follow up: Response: No adverse reaction db 16:53 Drug: Famotidine IVP 20 mg Route: IVP; Site: right antecubital; db 18:26 Follow up: Response: No adverse reaction db 16:54 Drug: TORadol - Ketorolac IVP 15 mg Route: IVP; Site: right antecubital; db 18:26 Follow up: Response: No adverse reaction db 18:26 Drug: Potassium Chloride PO 40 mEq Route: PO; db 18:58 Follow up: Response: No adverse reaction db Disposition Summary: 01/31/23 18:21 Discharge Ordered Location: Home kb Condition: Stable kb Diagnosis - Nausea with vomiting, unspecified kb Followup: kb - With: Emergency Department - When: As needed - Reason: Worsening of condition Followup: kb - With: Private Physician - When: 2 - 3 days - Reason: Recheck today's complaints, Continuance of care, Re-evaluation by your physician Discharge Instructions: - Discharge Summary Sheet kb - Nausea and Vomiting, Adult, [id number] kb Forms: - Medication Reconciliation Form kb - Thank You Letter kb - Antibiotic Education kb - Prescription Opioid Use kb Prescriptions: - ondansetron 4 mg Oral Tablet,disintegrating - take 1 tablet by ORAL route every 6 hours As needed; 12 tablet; Refills: 0, kb Product Selection Permitted - dicyclomine 20 mg Oral Tablet - take 1 tablet by ORAL route 4 times per day As needed; 20 tablet; Refills: 0, kb Product Selection Permitted Addendum: 02/05/2023 06:58 Co-signature as Attending Physician, Shiv Baltazar MD I reviewed the patient's care r n provided by the Advanced Practice Provider and agree with the diagnosis and treatment plan. Signatures: Dispatcher [employer] [place], AQUACULTURIST-C AQUACULTURIST-Shiv Duong MD MD rn Prokisch, Amanda RN RN ap3 Briseyda Quiroz RN RN db
--- NOTE | 2023-01-31 18:22 | ER ---
Nurse's Notes [facility] Name: Norma Bowman Age: 42 yrs Sex: Female : 1980 Arrival Date: 01/31/2023 Time: 15:33 Bed 6 Private MD: Diagnosis: Nausea with vomiting, unspecified Presentation: 01/31 15:41 Chief complaint: Patient states: she has been having nausea and vomiting since Sunday. ap3 patient also reports chills. Coronavirus screen: At this time, the client does not indicate any symptoms associated with coronavirus-19. Ebola Screen: No symptoms or risks identified at this time. Initial Sepsis Screen: Does the patient meet any 2 criteria? No. Patient's initial sepsis screen is negative. Does the patient have a suspected source of infection? Yes:. Risk Assessment: Do you want to hurt yourself or someone else? Patient reports no desire to harm self or others. Onset of symptoms was January 30, 2023. 15:41 Method Of Arrival: Ambulatory ap3 15:41 Acuity: LAURENT 3 ap3 Triage Assessment: 15:43 General: Appears distressed, Behavior is cooperative, appropriate for age. Pain: ap3 Complains of pain in abdomen. Neuro: Level of Consciousness is awake, alert, obeys commands. Cardiovascular: Patient's skin is warm and dry. Respiratory: Airway is patent Respiratory effort is even, unlabored, Respiratory pattern is regular, symmetrical. GI: Reports nausea, vomiting. 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 - Social history:: Smoking status: Patient reports the use of cigarette tobacco products, smokes one pack cigarettes per day. Screenin:44 [facility] ED Fall Risk Assessment (Adult) History of falling in the last 3 months, ap3 including since admission No falls in past 3 months (0 pts). Abuse screen: Denies threats or abuse. Nutritional screening: No deficits noted. Tuberculosis screening: No symptoms or risk factors identified. Assessment: 16:04 Reassessment: patient not in room at ultrasound. db 16:54 Reassessment: Patient appears in no apparent distress at this time. Patient and/or db family updated on plan of care and expected duration. Pain level reassessed. Patient is alert, oriented x 3, equal unlabored respirations, skin warm/dry/pink. complains of abdominal pain and nausea with vomiting. unable to sleep due to pain and N/V. General: Appears in no apparent distress. comfortable, Behavior is calm, cooperative. Pain: Complains of pain in abdomen. Neuro: No deficits noted. Level of Consciousness is awake, alert, obeys commands, Oriented to person, place, time, situation. Cardiovascular: No deficits noted. Respiratory: No deficits noted. Airway is patent Respiratory effort is even, unlabored, Respiratory pattern is regular, symmetrical. GI: Abdomen is flat, non-distended. 18:26 Reassessment: Patient appears in no apparent distress at this time. Patient and/or db family updated on plan of care and expected duration. Pain level reassessed. Patient is alert, oriented x 3, equal unlabored respirations, skin warm/dry/pink. Patient states feeling better. 18:58 Reassessment: Patient appears in no apparent distress at this time. Patient and/or db family updated on plan of care and expected duration. Pain level reassessed. Patient is alert, oriented x 3, equal unlabored respirations, skin warm/dry/pink. Patient states feeling better. Patient states symptoms have improved. Vital Signs: 15:41 BP 114 / 94; Pulse 80; Resp 19; Temp 98.4; Pulse Ox 100% ; Weight 86.18 kg; Height 5 ap3 ft. 8 in. ; 16:39 BP 133 / 68; Pulse 57; Resp 18; Pulse Ox 98% on R/A; db 17:30 BP 116 / 79; Pulse 53; Resp 18; Pulse Ox 99% on R/A; db 18:15 BP 103 / 67; Pulse 49; Resp 18; Pulse Ox 99% on R/A; db 15:41 Body Mass Index 28.89 (86.18 kg, 172.72 cm) ap3 ED Course: 15:37 Patient arrived in ED. mr 15:38 Elmira Jamison FNP-C is PSYCHIATRICP. kb 15:38 Shiv Baltazar MD is Attending Physician. kb 15:43 Triage completed. ap3 15:44 Arm band placed on right wrist. ap3 16:03 Briseyda Quiroz, RN is Primary Nurse. db 16:08 Abdomen Limited US In Process Unspecified. EDMS 16:50 Inserted saline lock: 20 gauge in right antecubital area, using aseptic technique. db Blood collected. 16:56 Patient has correct armband on for positive identification. Placed in gown. Bed in low db position. Side rails up X 1. 18:58 Pulse ox on. NIBP on. Warm blanket given. db 18:58 No provider procedures requiring assistance completed. IV discontinued, intact, db bleeding controlled, No redness/swelling at site. Administered Medications: 16:50 Drug: NS 0.9% IV 1000 ml Route: IV; Rate: 1 bolus; Site: right antecubital; db 18:26 Follow up: Response: No adverse reaction; IV Status: Completed infusion; IV Intake: db 1000ml 16:50 Drug: Ondansetron IVP 4 mg Route: IVP; Site: right antecubital; db 18:26 Follow up: Response: No adverse reaction db 16:53 Drug: Famotidine IVP 20 mg Route: IVP; Site: right antecubital; db 18:26 Follow up: Response: No adverse reaction db 16:54 Drug: TORadol - Ketorolac IVP 15 mg Route: IVP; Site: right antecubital; db 18:26 Follow up: Response: No adverse reaction db 18:26 Drug: Potassium Chloride PO 40 mEq Route: PO; db 18:58 Follow up: Response: No adverse reaction db Medication: 18:58 VIS not applicable for this client. db Intake: 18:26 IV: 1000ml; Total: 1000ml. db Outcome: 18:21 Discharge ordered by . kb 18:58 Discharged to home ambulatory. db 18:58 Condition: stable 18:58 Discharge instructions given to patient, Instructed on discharge instructions, follow up and referral plans. Prescriptions given X 2. 19:01 Patient left the ED. db Signatures: Dispatcher [employer] EDMS Elmira Jamison, ETHAN WITTP-Anna Phoebe CoburnKaila, RN RN ap3 Briseyda Quiroz, RN RN db
[2023-01-31] MEDS ORDERED: POTASSIUM CL SA 10 MEQ TAB PO ONE (18:26)
[2023-01-31 19:15] VITALS: TEMP 98.4
[2023-01-31 19:31] VITALS: O2SAT 99
[2023-01-31 19:32] VITALS: BP 103/67
== END 2023-01-31 19:01 | disposition home or self-care (01) ==
LOC: ER 15:33
DX: R11.2 Nausea with vomiting, unspecified (principal); F17.210 Nicotine dependence, cigarettes, uncomplicated; Z88.3 Allergy status to other anti-infective agents; Z91.048 Other nonmedicinal substance allergy status
CPT/HCPCS: 96361; 85025; 36415; 83690; 80053; 76705; 96375; 96374; 99284; J2405; J7030